=== PATIENT | female | born 1950 | race Caucasian/White ===

== ENCOUNTER 2019-08-01 21:14 | Inpatient (IN) | payer BC, MEDICARE ==
[2019-08-01 21:40] LABS: #Basophils 0.1 thou/uL (0.0-0.2); #Eosinphils 0.2 thou/uL (0.0-0.7); #Lymphocytes 2.6 thou/uL (1.20-3.40); #Monocytes 0.6 thou/uL (0.11-0.59); #Neutrophils 8.7 thou/uL (1.40-6.50); %Basophils 0.5 % (0.0-1.0); %Eosinophils 1.3 % (0.0-10.0); %Lymphocytes 21.5 % (21.0-51.0); %Monocytes 5.2 % (0.0-10.0); %Neutrophils 71.5 % (42.0-75.0); Hemoglobin 13.7 g/dL (12.0-16.0); Mean Corpuscular HGB CONC 33.7 g/dL (32.0-36.0); Mean Corpuscular Hemoglobin 31.4 pg (27.0-31.0); Mean Corpuscular Volume 93.2 fL (78.0-98.0); Mean Platelet Volume 7.1 fL (7.4-10.4); Platelet Count 296 thou/uL (130-400); RBC Distribution Width 12.3 % (11.5-14.5); Red Blood Cell (RBC) Count 4.36 mill/uL (4.20-5.40); White Blood Cell (WBC) Count 12.1 thou/uL (4.8-10.8)
--- NOTE | 2019-08-01 21:54 | RAD ---
Chest one view HISTORY: Dyspnea. FINDINGS: No comparison. Cardiac silhouette is magnified and enlarged. Pulmonary vasculature slightly engorged with mild patchy bibasilar infiltrates. Mediastinum is midline with aortic calcification. No lobar consolidation or evidence of pneumothorax. IMPRESSION: Mild bibasilar infiltrates favored to be related to borderline pulmonary edema. Cardiomegaly. Atherosclerosis.
[2019-08-01 22:09] LABS: ALT (SGPT) 30 U/L (8-55); AST (SGOT) 26 U/L (5-34); Albumin 4.3 g/dL (3.4-4.8); Alkaline Phosphatase 81 U/L (40-110); Anion Gap 14 mmol/L (10-20); BUN (Urea Nitrogen) 16 mg/dL (9.8-20.1); Bilirubin, Total 0.7 mg/dL (0.2-1.2); CK (CPK) 129 U/L (29-168); Calc. Creatinine Clearance 0 mL/min (70-130); Calcium 9.4 mg/dL (7.8-10.44); Carbon Dioxide 20 mmol/L (23-31); Chloride 110 mmol/L (98-107); Estimated GFR-MDRD 73; Globulin 2.2 g/dL (2.4-3.5); Glucose 147 mg/dL (80-115); Potassium 3.7 mmol/L (3.5-5.1); Protein, Total 6.5 g/dL (6.0-8.3); Sodium 140 mmol/L (136-145)
--- NOTE | 2019-08-01 23:54 | PDOC.FPRHP ---
- History of Present Illness Chief Complaint: back pain, a-fib by EMS History of Present Illness: Pt is 68-yo F w/ no PMHx but who rarely sees a physician. CC is back pain that started in the L lower back and shot up to her R upper back. [place] like a muscle spasm that was sharp in nature. Lasted for about 1.5 hours. Due to pain, called her neighbors who are EMS and they said she was in a-fib. Called ambulance. Received cardizem push and placed on drip. During this episode, she did not notice her heart racing. She has noticed heart racing in the past and checked her pulse ox and noticed HR fluctuated at times. Denies CP, SOB, increased WOB. placed ice on her back, which helped her back pain. Did not try meds for the pain. Has never been told she has a-fib. ED Course: EMS gave cardizem. EKG shows A-fib, now rate controlled. - Allergies/Adverse Reactions Allergies Allergy/AdvReac Type Severity Reaction Status Date / Time No Known Drug Allergies Allergy Verified 08/02/19 09:51 - History PMHx: none, but does not often see her PCP PSHx: cholecystectomy, tonsillectomy/adenoidectomy as a child FHx: - Mother: mitral stenosis, rheumatic heart disease - Brother: congenital heart disease, replaced aortic valve, had episodes of fainting prior to diagnosis Social: - Denies smoking, drinking, illicit drug use - . - Review of Systems General: denies: fever/chills, weight/appetite/sleep changes Eyes: denies: vision changes ENT: denies: nasal congestion, rhinorrhea Respiratory: denies: cough, shortness of breath Cardiovascular: reports: palpitation. denies: chest pain, edema, orthopnea Gastrointestinal: denies: nausea, vomiting, diarrhea, abdominal pain Genitourinary: denies: dysuria Skin: denies: rashes, jaundice Musculoskeletal: denies: pain, swelling Neurological: denies: syncope, seizure, weakness Psychological: denies: anxiety, depression - Vital signs BP: 125/87, Pulse: 110, Resp: 16, Pain: 0, O2 sat: 96 on (Room Air), Time: 2019 22:33. - Physical Exam Constitutional: NAD, awake, alert and oriented, well developed HEENT: normocephalic and atraumatic, PERRLA, EOMI, conjunctiva clear, no scleral icterus, grossly normal hearing, normal nasal mucosa, MMM Neck: supple, trachea midline, no thyromegaly Chest: no-tender to palpation Heart: normal S1/S2, no murmurs/rubs/gallops, pulses present -Heart: mild nonpitting edema, tachycardic rate, irregular rhythm Lungs: CTAB, no respiratory distress, no wheezing Abdomen: soft, non-tender, no masses/distention Musculoskeletal: normal structure, normal tone, ROM grossly normal Neurological: no focal deficit Skin: no rash/lesions, good turgor, no jaundice Heme/Lymphatic: no purpura, no LAD -Heme/Lymphatic: minimal petechia on shins b/l Psychiatric: normal mood and affect, good judgment and insight, intact recent and remote memory FMR H&P: Results - Labs Result Diagrams: 08/02/19 06:27 08/02/19 06:27 Lab results: WBC 12.1 thou/uL (4.8-10.8) H 08/01/19 21:36 Hgb 13.7 g/dL (12.0-16.0) 08/01/19 21:36 Hct 40.6 % (36.0-47.0) 08/01/19 21:36 MCV 93.2 fL (78.0-98.0) 08/01/19 21:36 Plt Count 296 thou/uL (130-400) 08/01/19 21:36 Neutrophils % 71.5 % (42.0-75.0) 08/01/19 21:36 Sodium 140 mmol/L (136-145) 08/01/19 21:36 Potassium 3.7 mmol/L (3.5-5.1) 08/01/19 21:36 Chloride 110 mmol/L (98-107) H 08/01/19 21:36 Carbon Dioxide 20 mmol/L (23-31) L 08/01/19 21:36 BUN 16 mg/dL (9.8-20.1) 08/01/19 21:36 Creatinine 0.78 mg/dL (0.6-1.1) 08/01/19 21:36 Glucose 147 mg/dL (80-115) H 08/01/19 21:36 Calcium 9.4 mg/dL (7.8-10.44) 08/01/19 21:36 Total Bilirubin 0.7 mg/dL (0.2-1.2) 08/01/19 21:36 AST 26 U/L (5-34) 08/01/19 21:36 ALT 30 U/L (8-55) 08/01/19 21:36 Alkaline Phosphatase 81 U/L (40-110) 08/01/19 21:36 Creatine Kinase 129 U/L (29-168) 08/01/19 21:36 Serum Total Protein 6.5 g/dL (6.0-8.3) 08/01/19 21:36 Albumin 4.3 g/dL (3.4-4.8) 08/01/19 21:36 - EKG Interpretation EKG: a-fib - Radiology Interpretation Chest x-ray Status: image reviewed by me, report reviewed by me (mild bibasilar infiltrates , cardiomegaly, atherosclerosis) FMR H&P: A/P - Problem List (1) Atrial fibrillation with RVR Current Visit: Yes Status: Acute Code(s): I48.91 - UNSPECIFIED ATRIAL FIBRILLATION (2) Back pain Current Visit: Yes Status: Acute Code(s): M54.9 - DORSALGIA, UNSPECIFIED - Plan 68 year old female admitted for: New onset A-fib w/ RVR - possible paroxysmal a-fib which has been going on for a while, but pt has not seen doctor nor been worked up for this - CXR w/ possible b/l pulmonary edema, cardiomegaly, atherosclerosis. Possible new onset CHF as well. Will wait on getting ECHO until a-fib is rate-controlled and until cardiology sees pt in AM. - Initial trop 0.023. - BNP 293. - Trend troponins - TSH, magnesium pending. - Consult cardiology in AM for new onset A-fib - Will anticoagulate w/ heparin drip - Diltiazem drip. Back pain - unclear etiology. May be acute muscle spasm. - will monitor and manage pain symptoms w/ Tylenol. Possible CHANA - follow up outpatient, states pt snores at night and has apneic spells. This may be contributing to her cardiomegaly if she is developing persistent pulmonary HTN. Code: full Fluids: none Diet: NPO, in case cardiology may wish to cardiovert tomorrow VTE PPx: see heparin drip above GI ppx: none Josie Abrams. PGY1 Disposition/LOS: admit to inpatient telemetry. LOS > 48 H FMR H&P: Upper Level - Plan Date/Time: 08/01/19 8183 PCP: Paulino HPI: This is a 68 yo F with no significant PMH being admitted for evaluation of new onset a fib w/ RVR. Patient states she was sitting at home when she developed a throbbing back pain between her shoulder blades. Denies CP, SOB, or radiation to her arm or neck. She denies sensation of palpitations. States she called her neighbors who are paramedics and they advised her to call 911 for evaluation. Upon arrival of paramedics she was found to be in A fib w/ RVR with rate in the 140s-150s. She was given diltiazem 15mg IV. In the ED her HR was initially in the 140s but then trended to around 110 without further treatment. Patient states that she uses her husbands pulse ox on herself and her pulse frequently is in the 120s or 130s. Patient denies recent illnesses. states that patient does snore excessively at night time. REVIEW OF SYSTEMS: Gen: no fever, chills, or sweats Neuro: denies headache Eyes: no visual changes ENT: no hearing changes, no sore throat, no congestion Resp: denies cough, SOB Card: denies murmurs, rubs, gallups GI: no N/V/D, no abdominal pain Heme: no easy bruising/bleeding, no blood thinners Skin: no rash, no erythema PHYSICAL EXAMINATION: General: NAD, alert and oriented x3 HEENT: PERRLA, EOMI, normal sclera, oropharynx without erythema or exudate Neck: Supple. Full ROM. Heart/Cardiovascular System: irregularly irregular rhythm, Cap refill < 3 seconds, no rub, no murmur Lungs/Respiratory System: CTA-B, no resp distress Abdomen/Gastro-Intestinal System: no abdominal tenderness, normal bowel sounds Extremities: Warm extremities. No cyanosis or edema Neuro: No gross deficits appreciated. CN 2-12 grossly intact Psychiatry: Awake, Alert and cooperative with exam Skin: No lesions, rashes, or ulcers Musculoskeletal: Full ROM A/P: # New onset A fib w/ RVR - Rate controlled after 15mg IV diltiazem, will start oral diltiazem - Monitor on tele, IV diltiazem if rate bumps up - Heparin drip, patient may qualify for cardioversion o CHADS-VASC- 1 - Consult Cardiology in AM - Trend troponin, check TSH, mag - Abnormal EKG: St depression V5-V6, Tinv V2-V6, on heparin, trend trops # Likely CHANA - outpt sleep study Fluids: TKO Code status: full PPx: heparin Dispo: >2 midnight Addendum - Attending - Attending Attestation Date/Time: 08/02/19 1147 I personally evaluated the patient and discussed the management with Dr. Abrams I agree with the History, Examination, Assessment and Plan documented above with any addition or exceptions noted below. 68 yo female admitted with Atrial fibrillation with RVR rate controlled with diltiazem.CHADS VASC 1 for female sex 1 for age equal 2 Questionable new onset A fib verse parosymal a fib. Patient endorses episodes of weakness and palpitations and pulse with elevated HR. Patient relates a "cardiac work" up in [facility] [place] approximately 4 years ago which was negative per patient. Meds none p[atient with sparse physician contact Lizbeth INGRAM social 2 children FMHX Father 60s Mother with Rheumatic heart disease had MVR Brother with Blane HD hx ablation in his 30s Habits nonsmoker non drinker ROS cataracts ,tinnitus, had negative colonoscopy at 60 yo otherwise negative ROS A atrial fib with RVR P echocardiogram for structural valvular disease evaluation evaluate for ASHD can hold off heparin drip pending Cardiology recommendation TFTs need to be checked if not done. Rate control with diltiazem for now.
[2019-08-02] MEDS ORDERED: Ondansetron PF 4 MG/2 ML Vial IVP PRN (00:19)
[2019-08-02] MEDS ORDERED: Acetaminophen 325 MG TAB PO PRN (00:19)
[2019-08-02] MEDS ORDERED: Ondansetron ODT 4 MG TAB PO PRN (00:19)
[2019-08-02] MEDS ORDERED: Heparin 25,000 units/D5W 500 ML IVPB SCH (00:30)
[2019-08-02] MEDS ORDERED: Heparin 10,000 UNITS/ 10 ML VIAL SLOW IVP SCH (00:30)
[2019-08-02 01:04] LABS: Hemoglobin 13.5 g/dL (12.0-16.0); Platelet Count 290 thou/uL (130-400)
[2019-08-02 01:29] LABS: Troponin I 0.037 ng/mL (< 0.028)
--- NOTE | 2019-08-02 02:48 | PDOC.BPN ---
- Brief Progress Note re-check on patient she had gotten up to go to restroom, after returning rate was in 130s at time of exam rate consistently in 120s patient denies chest pain but is having recurrence of back pain Will start diltiazem drip at 5mg/hr
[2019-08-02] MEDS: Diltiazem 125 MG in Sodium Chloride 0.9% 100 ML IVPB SCH (03:29)
[2019-08-02 06:39] LABS: #Basophils 0.1 thou/uL (0.0-0.2); #Eosinphils 0.2 thou/uL (0.0-0.7); #Lymphocytes 2.6 thou/uL (1.20-3.40); #Monocytes 0.6 thou/uL (0.11-0.59); #Neutrophils 7.3 thou/uL (1.40-6.50); %Basophils 0.6 % (0.0-1.0); %Eosinophils 1.8 % (0.0-10.0); %Lymphocytes 24.3 % (21.0-51.0); %Monocytes 5.7 % (0.0-10.0); %Neutrophils 67.5 % (42.0-75.0); Hemoglobin 13.7 g/dL (12.0-16.0); Mean Corpuscular HGB CONC 34.4 g/dL (32.0-36.0); Mean Corpuscular Hemoglobin 31.9 pg (27.0-31.0); Mean Corpuscular Volume 92.6 fL (78.0-98.0); Mean Platelet Volume 7.4 fL (7.4-10.4); Platelet Count 264 thou/uL (130-400); RBC Distribution Width 12.4 % (11.5-14.5); Red Blood Cell (RBC) Count 4.31 mill/uL (4.20-5.40); White Blood Cell (WBC) Count 10.7 thou/uL (4.8-10.8)
[2019-08-02 06:57] LABS: Anion Gap 12 mmol/L (10-20); BUN (Urea Nitrogen) 12 mg/dL (9.8-20.1); Calc. Creatinine Clearance 0 mL/min (70-130); Calcium 8.7 mg/dL (7.8-10.44); Carbon Dioxide 21 mmol/L (23-31); Chloride 110 mmol/L (98-107); Estimated GFR-MDRD 83; Glucose 98 mg/dL (80-115); Potassium 3.8 mmol/L (3.5-5.1); Sodium 139 mmol/L (136-145)
[2019-08-02 07:03] LABS: Troponin I 0.014 ng/mL (< 0.028)
[2019-08-02 09:47] VITALS: BMI 29.6
[2019-08-02] MEDS ORDERED: hydrALAZINE 20 MG/ML VIAL SLOW IVP PRN (14:53)
--- NOTE | 2019-08-02 18:01 | CON ---
DATE OF CONSULTATION: 08/02/2019 REASON FOR CONSULTATION: New onset atrial fibrillation. HISTORY OF PRESENT ILLNESS: Ms. Leal is a very pleasant 68-year-old woman, who has not been seen or evaluated in the past. She has no significant past medical history. She recently presented with back spasm. She was found to be in atrial fibrillation with RVR. She was asymptomatic. No palpitations, heart fluttering. She does have likely history of obstructive sleep apnea. Her states she snores and stops breathing. No previous history of hypertension or other associated symptoms. PAST MEDICAL HISTORY: As above. SURGICAL HISTORY: Cholecystectomy, tonsillectomy. FAMILY HISTORY: Negative for CAD. SOCIAL HISTORY: No current tobacco or alcohol use. REVIEW OF SYSTEMS: A 10-point review of systems is reviewed as above, otherwise negative. PHYSICAL EXAMINATION: GENERAL: Patient is a pleasant woman who is in no acute distress. The patient appears their stated age. VITAL SIGNS: Blood pressure 146/88, pulse 93, temperature 98.1. NEUROLOGIC: The patient is alert and oriented x3 with no focal neurologic deficits. HEENT: Sclerae without icterus. Mouth has moist mucous membranes with normal pallor. NECK: No JVD. Carotid upstroke brisk. No bruits bilaterally. LUNGS: Clear to auscultation with unlabored respirations. BACK: No scoliosis or kyphosis. CARDIAC: Irregularly irregular rate and rhythm with normal S1 and S2. No S3 or S4 noted. No significant rubs, murmurs, thrills, or gallops noted throughout the precordium. PMI is not displaced. There is no parasternal heave. ABDOMEN: Soft, nontender, nondistended. No peritoneal signs present. No hepatosplenomegaly. No abnormal striae. EXTREMITIES: 2+ femoral and 2+ dorsalis pedis pulses. No cyanosis, clubbing, or edema. SKIN: No gross abnormalities. PERTINENT LABORATORY DATA: Hemoglobin 13.7, creatinine 0.7, peak troponin 0.037. BNP of 293. IMPRESSION: New onset atrial fibrillation. RECOMMENDATIONS: Etiology to underlying atrial fibrillation is likely related to obstructive sleep apnea. She has no previous history of hypertension or has never been diagnosed with hypertension. We will continue to monitor blood pressure closely and make adjustments if needed. She is currently on IV Cardizem at 5 mg/hour. She will likely benefit from anticoagulation therapy. I have discussed risks and benefits of anticoagulation treatment. She is amenable. Once she is rate control, it will be okay from my standpoint to discharge home with close outpatient followup. Job ID: [id number]
[2019-08-02] MEDS ORDERED: Heparin 5,000 UNITS/ML VIAL SC SCH (21:00)
[2019-08-03] MEDS: Diltiazem 125 MG in Sodium Chloride 0.9% 100 ML IVPB SCH (01:16)
[2019-08-03 05:18] LABS: Anion Gap 14 mmol/L (10-20); BUN (Urea Nitrogen) 12 mg/dL (9.8-20.1); Calc. Creatinine Clearance 100 mL/min (70-130); Calcium 9.3 mg/dL (7.8-10.44); Carbon Dioxide 22 mmol/L (23-31); Cardiac Risk 2.6 (Less than 4.5); Chloride 108 mmol/L (98-107); Cholesterol 177 mg/dl (< 200 Desired); Estimated GFR-MDRD 82; Glucose 111 mg/dL (80-115); HDL Cholesterol 67 mg/dL (>60 Neg Risk); LDL Cholesterol, Calculated 90 mg/dL; Potassium 3.8 mmol/L (3.5-5.1); Sodium 140 mmol/L (136-145); Triglycerides 101 mg/dL (Less than 150)
--- NOTE | 2019-08-03 05:59 | PDOC.FM ---
- Subjective Subjective: Pt states she is feeling well this morning. Denies any palpitations, lightheadedness or dizziness. No CP or SOB. Pt was seen by cardiology yesterday and has agreed to start anticoagulation therapy. Discussed her transition to PO rate control meds. Agrees with current plan of care. - Objective Vital Signs & Weight: Vital Signs (12 hours) Temp Pulse Resp BP Pulse Ox 08/03/19 03:21 98.1 F 89 20 114/80 95 08/02/19 23:00 76 116/62 08/02/19 19:05 97.6 F 64 16 145/87 H 97 Weight Weight 83.206 kg Result Diagrams: 08/02/19 06:27 08/03/19 04:12 Phys Exam - Physical Examination Constitutional: NAD HEENT: moist MMs, sclera anicteric Neck: supple, full ROM Respiratory: no wheezing, no rales, no rhonchi, clear to auscultation bilateral Irregularly irregular rhythm, normal rate, no murmur Gastrointestinal: soft, no distention Musculoskeletal: no edema, pulses present Neurological: moves all 4 limbs Psychiatric: normal affect, A&O x 3 Skin: no rash, cap refill <2 seconds Dx/Plan (1) Obstructive sleep apnea Code(s): G47.33 - OBSTRUCTIVE SLEEP APNEA (ADULT) (PEDIATRIC) Status: Resolved (2) Atrial fibrillation with RVR Code(s): I48.91 - UNSPECIFIED ATRIAL FIBRILLATION Status: Resolved (3) Atrial fibrillation Code(s): I48.91 - UNSPECIFIED ATRIAL FIBRILLATION Status: Acute - Plan Plan: 68 year old female admitted for: New onset A-fib w/ RVR - Currently rate controlled on diltiazem PO TID per Dr. Mai, will likely DC diltiazem ER - Transitioned from heparin to Eliquis for anticoagulation today - Dr. Mai consulted and believes etiology is 2/2 CHANA. Recommends rate control and anticoagulation prior to discharge - Echo has been taken, pending formal read Possible CHANA - follow up outpatient Code: full Diet: HH VTE PPx: Eliquis Disposition/LOS: admit to inpatient telemetry. LOS > 48 H PCP: Dr. Bob Addendum - Attending - Attending Attestation Date/Time: 08/03/19 3041 I personally evaluated the patient and discussed the management with Dr. Rios I agree with the History, Examination, Assessment and Plan documented above with any addition or exceptions noted below. Rate controlled will transition long acting non-dihydropyridine diltiazem ER, DAOC started. Will proceed with outpatient sleep study.
[2019-08-03] MEDS ORDERED: Apixaban 5 MG TAB PO SCH (09:00)
[2019-08-03] MEDS ORDERED: FLU VACC TS2019-20(65YR UP)/PF 180 MCG/0.5 ML SYRINGE IM ONE (10:15)
[2019-08-03] MEDS ORDERED: Communication Order-Pharmacy FS SCH (16:30)
--- NOTE | 2019-08-03 18:11 | PRG ---
DATE OF SERVICE: 08/03/2019 SUBJECTIVE: Ms. Leal is doing well. No current complaints. She feels much better. She is rate controlled on p.o. diltiazem. OBJECTIVE: VITAL SIGNS: Blood pressure 166/91, pulse 91, temperature 97.6. LUNGS: Clear to auscultation. HEART: Irregularly irregular. ABDOMEN: Soft, nontender, nondistended. EXTREMITIES: No edema. PERTINENT LABORATORY DATA: Hemoglobin 13.7, hematocrit 39.9. Echo with Doppler shows LVEF 25% to 30%. LV appears dilated. IMPRESSION: 1. New onset cardiomyopathy. 2. Atrial fibrillation. RECOMMENDATIONS: I discussed new findings with Ms. Leal in full detail. I discussed cardiomyopathy. I discussed in full detail proceeding with coronary angiography versus medical therapy versus a noninvasive stress study. After discussing the above, it was decided to proceed with coronary angiography. I discussed the procedure in full detail with Ms. Leal. Risks include not limited to the following: , stroke, SC, need for emergency surgery, loss of limb, bleeding, and infection, as well as a reaction to the dye causing kidney failure and needing long-term dialysis. I also discussed the risks of PCI to include all of the above including coronary dissection and perforation in addition to acute stent thrombosis and restenosis. All questions were answered. Given the above, the patient agreed to proceed with the above procedure. We will also recommend LifeMarium. Job ID: [id number]
[2019-08-04] MEDS ORDERED: Sodium Chloride 0.9% 1,000 ML IV SCH ×2 (06:00→09:15)
--- NOTE | 2019-08-04 06:15 | PDOC.FM ---
- Subjective Subjective: Pt remains asymptomatic this morning, no events overnight. Was seen by Dr. Mai yesterday following echo and informed of CHF dx. Agreed to undergo cath procedure today to assess for ischemic heart disease. - Objective Vital Signs & Weight: Vital Signs (12 hours) Temp Pulse Resp BP Pulse Ox 08/04/19 04:00 98.2 F 84 20 124/67 95 08/03/19 19:30 98.0 F 90 16 159/77 H 96 Weight Weight 83.206 kg Result Diagrams: 08/02/19 06:27 08/03/19 04:12 Phys Exam - Physical Examination Constitutional: NAD HEENT: moist MMs, sclera anicteric Neck: no JVD, full ROM Respiratory: no wheezing, no rales, no rhonchi, clear to auscultation bilateral Irregularly Irregular, normal rate, no extra heart sounds Gastrointestinal: soft, non-tender Musculoskeletal: no edema, pulses present Neurological: non-focal, moves all 4 limbs Psychiatric: normal affect, A&O x 3 Skin: no rash, cap refill <2 seconds Dx/Plan (1) Atrial fibrillation with RVR Code(s): I48.91 - UNSPECIFIED ATRIAL FIBRILLATION Status: Resolved (2) Atrial fibrillation Code(s): I48.91 - UNSPECIFIED ATRIAL FIBRILLATION Status: Acute (3) Congestive heart failure Code(s): I50.9 - HEART FAILURE, UNSPECIFIED Status: Acute (4) Obstructive sleep apnea Code(s): G47.33 - OBSTRUCTIVE SLEEP APNEA (ADULT) (PEDIATRIC) Status: Resolved - Plan Plan: 68 year old female admitted for: New onset A-fib - Currently rate controlled on TID diltiazem, will transition to ER prior to DC - Echo yesterday showed new onset CHF - Eliquis held for cath today New onset CHF - Echo: EF 25-30% - Dr. Mai spoke w/ pt and will perform cardiac cath today - Lifevest prior to discharge - HF clinic consulted - ACEi and BB initiation prior to DC Possible CHANA - follow up outpatient for referral Code: full Diet: HH VTE PPx: Holding Disposition/LOS: Inpt tele. Cath procedure today. PCP: Dr. Bob Addendum - Attending - Attending Attestation Date/Time: 08/04/19 5882 I personally evaluated the patient and discussed the management with Dr. Rios I agree with the History, Examination, Assessment and Plan documented above with any addition or exceptions noted below. Heart Cath with mild CAD per patient report. Patient for life vest and amiodarone, eliquis and possible DC cardioversion in the future.
[2019-08-04] MEDS ORDERED: Heparin (Artline) 1,000 ML ONE (06:37)
[2019-08-04] MEDS ORDERED: Nitroglycerin 100MG/250ML BOT 250 ML ONE (06:38)
[2019-08-04] MEDS ORDERED: Verapamil 5 MG/2 ML VIAL ONE (06:38)
[2019-08-04] MEDS ORDERED: Heparin 10,000 UNITS/1 ML VIAL ONE (06:38)
[2019-08-04] MEDS ORDERED: Lidocaine 1% (PF) 30 ML VIAL ONE (06:45)
[2019-08-04] MEDS ORDERED: Midazolam HCl 2 mg/2 ml Vial ONE (07:25)
[2019-08-04] MEDS ORDERED: Fentanyl 100 MCG/2 ML VIAL ONE (07:25)
[2019-08-04] MEDS ORDERED: Nitroglycerin 0.4 MG TAB (25 Tab Bottle) SL PRN (09:07)
[2019-08-04] MEDS ORDERED: Acetaminophen/Codeine 30-300mg Tablet PO PRN ×2 (09:07)
[2019-08-04] MEDS ORDERED: Sodium Chloride 0.9% 200 ML IV PRN (09:07)
[2019-08-04] MEDS ORDERED: Carvedilol 6.25 MG TAB PO SCH ×2 (09:30→21:00)
[2019-08-04] MEDS ORDERED: Apixaban 5 MG TAB PO SCH ×2 (09:30→21:00)
[2019-08-04] MEDS ORDERED: Losartan 25 MG TAB PO SCH (09:30)
[2019-08-04] MEDS ORDERED: Amiodarone 200 MG TAB PO SCH ×2 (09:30→21:00)
[2019-08-04] MEDS ORDERED: Iopamidol 370 76% 100 ML VIAL ONE (09:45)
[2019-08-04 11:47] VITALS: TEMP 97
[2019-08-04 12:52] VITALS: BP 117/60
--- NOTE | 2019-08-05 02:02 | DIS ---
DATE OF ADMISSION: 08/02/2019 DATE OF DISCHARGE: 08/04/2019 ADMITTING ATTENDING: Diego Foster MD DISCHARGE ATTENDING: Jarocho Riggs MD RESIDENT: Jv Rios DO CONSULTS: Cardiology, Rene Mai MD; Heart Failure Clinic; Cardiac rehab. PROCEDURES PERFORMED: 1. Cardiac catheterization, 08/04/2019. Findings: Mild coronary artery disease, report pending. 2. Imaging: Chest x-ray, mild basilar infiltrates favored to be related to borderline pulmonary edema. PRIMARY DIAGNOSES: Heart failure, reduced ejection fraction, atrial fibrillation with rapid ventricular response, mild coronary artery disease. SECONDARY DIAGNOSES: Likely obstructive sleep apnea, hypertension. DISCHARGE MEDICATIONS: 1. Eliquis 5 mg p.o. b.i.d. 2. Amiodarone 400 mg p.o. b.i.d. for one week, then once daily. 3. Coreg 6.25 mg p.o. b.i.d. 4. Losartan 25 mg daily. HISTORY OF PRESENT ILLNESS AND HOSPITAL COURSE: A 68-year-old female with no past medical history, presented to the emergency department complaining of left lower back pain radiating to her right upper back. En route via EMS, the patient was noted to be in atrial fibrillation with rapid ventricular response and received Cardizem bolus. At the time of arrival to the emergency department, the patient was still in RVR and started on a diltiazem drip at 5 mL an hour. The patient states that she was never told before that she had atrial fibrillation, but did note that in the past, she has noted her heart rate fluctuating when she has checked her pulse. The patient was subsequently admitted to inpatient telemetry for continued cardiac monitoring and titration of her rate control medications. The patient was then evaluated by Cardiology, Dr. Mai, who transitioned the patient to oral diltiazem and initiated oral anticoagulation therapy. The patient had an echocardiogram performed that showed an EF of 25% to 30%. With this finding, the patient agreed to undergo cardiac catheterization, which subsequently showed mild coronary artery disease, not requiring any stents. The patient was started on an ABIGAIL inhibitor, beta-delta, as well as amiodarone for rhythm control prior to discharge. The patient was also fitted for a LifeVest and seen by the Heart failure Clinic in cardiac rehabilitation. The patient was instructed on the need for close followup with both her PCP and Cardiology in the near future. She expressed understanding of this and was stable at the time of discharge. DISCHARGE INSTRUCTIONS: 1. Location: Home. 2. Diet: Heart healthy. 3. Activity: As tolerated by cardiopulmonary limits. 4. Followup: PCP; [facility] within 7 days; Dr. Mai, Cardiology, within 2 to 4 weeks. Job ID: [id number]
[2019-08-05] MEDS ORDERED: Losartan 25 MG TAB PO SCH (09:00)
--- NOTE | 2019-08-05 15:45 | EKG ---
Test Reason : A FIB Blood Pressure : / mmHG Vent. Rate : 093 BPM Atrial Rate : 072 BPM P-R Int : 000 ms QRS Dur : 108 ms QT Int : 364 ms P-R-T Axes : 000 -08 146 degrees QTc Int : 452 ms Atrial fibrillation Incomplete right bundle branch block Abnormal ECG Confirmed by CHANG SILVEIRA ([id number]), newspaper photo editor ALEISHA PHILLIP ([id number]) on 08/05/2019 3:44:47 PM Referred By: Confirmed By:CHANG Wang
--- NOTE | 2019-08-07 01:58 | PQF ---
RYAN BROCK GRADY [id number] [facility]-297 [id number] CLINICAL DOCUMENTATION CLARIFICATION FORM: POST DISCHARGE Addendum to original discharge summary date: ____ Late entry note date: __ DATE: 08/07/19 ATTN: Jarocho Beaver Please exercise your independent, professional judgment in responding to the clarification form. Clinical indicators are provided on the bottom of this form for your review Please check appropriate box(s): HEART FAILURE: Heart Failure, reduced ejection ACUITY [ ] Acute [ ] Acute on Chronic [ x ] Chronic [ ] Other diagnosis [ ] Unable to determine In addition, please specify: Present on Admission (POA): [ x ] Yes [ ] No [ ] Unable to determine For continuity of documentation, please document condition throughout progress notes and discharge summary. Thank You. CLINICAL INDICATORS - SIGNS / SYMPTOMS / LABS Family Medicine H&P p1 08/02 Dr Abrams CC is back pain that started in the l lower back and shot up to her R upper back Family Medicine H&P p1 08/02 Dr Abrams called her neighbors who are EMS and they said she was in afib Family Medicine H&P p2 08/02 Dr Abrams Mild nonpitting edema, tachycardic rate , irregular rhythm Family Medicine H&P p4 08/02 Dr Abrams BNP 293, troponin trends TTE 08/02 Impression: Ejection fraction is visually estimated at 25-30% RISKS: Discharge summary p1 08/04 Heart Failure, reduced ejection fraction Discharge summary 08/04 Atrial fibrillation with rapid ventricular response Discharge summary p1 08/04 Mild coronary artery disease Discharge summary 08/04 Hypertension TREATMENTS: SEP 16 IV Diltiazem drip SEP 16 CarvedilolTTE 08/[address] Ashley Mai Cardiac Catherization 08/04 Dr Ashley Mai (This form is maintained as a part of the permanent medical record) 2014 [employer]. All Rights Reserved [email or web address] [not provided] MTDD
== END 2019-08-04 15:35 | disposition home or self-care (01) | DRG 287 ==
LOC: ERS 21:14 → ERHOLD 08-02 00:09 → 2NO 08-02 09:28
PROVIDERS: ADMIT Family Medicine; ATTEND Family Medicine
PROC: 3E0234Z Introduction of Serum, Toxoid and Vaccine into Muscle, Percutaneous Approach (ICD-10-PCS; principal; 2019-08-03)
PROC: 4A023N7 Measurement of Cardiac Sampling and Pressure, Left Heart, Percutaneous Approach (ICD-10-PCS; 2019-08-04)
PROC: B2151ZZ Fluoroscopy of Left Heart using Low Osmolar Contrast (ICD-10-PCS; 2019-08-04)
PROC: B2111ZZ Fluoroscopy of Multiple Coronary Arteries using Low Osmolar Contrast (ICD-10-PCS; 2019-08-04)
PROC: B3101ZZ Fluoroscopy of Thoracic Aorta using Low Osmolar Contrast (ICD-10-PCS; 2019-08-04)
DX: I48.0 Paroxysmal atrial fibrillation (principal); I50.22 Chronic systolic (congestive) heart failure; I42.9 Cardiomyopathy, unspecified; I25.10 Atherosclerotic heart disease of native coronary artery without angina pectoris; G47.33 Obstructive sleep apnea (adult) (pediatric); I11.0 Hypertensive heart disease with heart failure; Z23 Encounter for immunization; Z90.49 Acquired absence of other specified parts of digestive tract
CPT/HCPCS: 36415; 71045; 80048; 80053; 80061; 82550; 83735; 83880; 84443; 84484; 85014; 85018; 85025; 85049; 85730; 90471; 90662; 93005; 93306; 93458; 93798; 94760; 99152; 99153; C1769; G0008; J1644; J2001; J2250; J3010; J3490; Q9967

== ENCOUNTER 2019-09-07 11:13 | Day surgery (SDC) | payer BC ==
[2019-09-06 08:40] VITALS: BMI 29.9
[2019-09-07 12:09] LABS: #Basophils 0.1 thou/uL (0.0-0.2); #Eosinphils 0.1 thou/uL (0.0-0.7); #Lymphocytes 2.4 thou/uL (1.20-3.40); #Monocytes 0.5 thou/uL (0.11-0.59); #Neutrophils 5.7 thou/uL (1.40-6.50); %Basophils 1.1 % (0.0-1.0); %Eosinophils 1.7 % (0.0-10.0); %Lymphocytes 27.1 % (21.0-51.0); %Monocytes 5.8 % (0.0-10.0); %Neutrophils 64.2 % (42.0-75.0); Hemoglobin 14.7 g/dL (12.0-16.0); Mean Corpuscular HGB CONC 34.3 g/dL (32.0-36.0); Mean Corpuscular Hemoglobin 31.7 pg (27.0-31.0); Mean Corpuscular Volume 92.4 fL (78.0-98.0); Mean Platelet Volume 7.4 fL (7.4-10.4); Platelet Count 271 thou/uL (130-400); RBC Distribution Width 12.3 % (11.5-14.5); Red Blood Cell (RBC) Count 4.64 mill/uL (4.20-5.40); White Blood Cell (WBC) Count 8.9 thou/uL (4.8-10.8)
[2019-09-07 12:31] LABS: Anion Gap 13 mmol/L (10-20); BUN (Urea Nitrogen) 13 mg/dL (9.8-20.1); Calc. Creatinine Clearance 79 mL/min (70-130); Calcium 9.6 mg/dL (7.8-10.44); Carbon Dioxide 26 mmol/L (23-31); Chloride 103 mmol/L (98-107); Estimated GFR-MDRD 61; Glucose 89 mg/dL (80-115); Potassium 4.1 mmol/L (3.5-5.1); Sodium 138 mmol/L (136-145)
[2019-09-07] MEDS ORDERED: PROPOFOL 20 ML ONE (12:41)
== END 2019-09-07 14:15 | disposition home or self-care (01) ==
LOC: CCL 11:13
PROVIDERS: ATTEND Internal Medicine Cardiovascular Disease
DX: I48.19 Other persistent atrial fibrillation (principal); I42.8 Other cardiomyopathies; I11.0 Hypertensive heart disease with heart failure; I50.21 Acute systolic (congestive) heart failure; G47.33 Obstructive sleep apnea (adult) (pediatric); Z79.01 Long term (current) use of anticoagulants; Z79.899 Other long term (current) drug therapy
CPT/HCPCS: 36415; 80048; 85025; 92960; J2704

== ENCOUNTER 2019-09-14 19:30 | Outpatient (CLI) | payer MEDICARE, BC | END 2019-09-14 19:31 | disposition home or self-care (01) | LOC: SLEEPLAB 19:30 | PROVIDERS: ATTEND Physician Assistant | DX: G47.33 Obstructive sleep apnea (adult) (pediatric) (principal); I11.0 Hypertensive heart disease with heart failure; I50.9 Heart failure, unspecified; I48.91 Unspecified atrial fibrillation; G47.00 Insomnia, unspecified; G47.52 REM sleep behavior disorder | CPT/HCPCS: 95810 ==

== ENCOUNTER 2019-11-18 19:30 | Outpatient (CLI) | payer BC | END 2019-11-18 19:31 | disposition home or self-care (01) | LOC: SLEEPLAB 19:30 | PROVIDERS: ATTEND Physician Assistant | DX: G47.33 Obstructive sleep apnea (adult) (pediatric) (principal); G47.10 Hypersomnia, unspecified; E66.9 Obesity, unspecified; I48.91 Unspecified atrial fibrillation; Z68.30 Body mass index [BMI] 30.0-30.9, adult | CPT/HCPCS: 95811 ==

== ENCOUNTER 2019-12-28 06:44 | Outpatient (CLI) | payer BC, OTHER ==
[2019-12-28 12:05] LABS: #Basophils 0.1 thou/uL (0.0-0.2); #Eosinphils 0.2 thou/uL (0.0-0.7); #Lymphocytes 2.1 thou/uL (1.20-3.40); #Monocytes 0.5 thou/uL (0.11-0.59); #Neutrophils 4.7 thou/uL (1.40-6.50); %Basophils 1.2 % (0.0-1.0); %Eosinophils 3.2 % (0.0-10.0); %Lymphocytes 27.8 % (21.0-51.0); %Monocytes 6.1 % (0.0-10.0); %Neutrophils 61.7 % (42.0-75.0); Hemoglobin 14.1 g/dL (12.0-16.0); Mean Corpuscular HGB CONC 34.2 g/dL (32.0-36.0); Mean Corpuscular Hemoglobin 32.6 pg (27.0-31.0); Mean Corpuscular Volume 95.4 fL (78.0-98.0); Mean Platelet Volume 7.5 fL (7.4-10.4); Platelet Count 284 thou/uL (130-400); RBC Distribution Width 11.9 % (11.5-14.5); Red Blood Cell (RBC) Count 4.33 mill/uL (4.20-5.40); White Blood Cell (WBC) Count 7.7 thou/uL (4.8-10.8)
[2019-12-28 13:12] LABS: ALT (SGPT) 18 U/L (8-55); AST (SGOT) 17 U/L (5-34); Albumin 4.6 g/dL (3.4-4.8); Alkaline Phosphatase 101 U/L (40-110); Anion Gap 13 mmol/L (10-20); BUN (Urea Nitrogen) 19 mg/dL (9.8-20.1); Bilirubin, Total 0.5 mg/dL (0.2-1.2); Calc. Creatinine Clearance 0 mL/min (70-130); Calcium 9.6 mg/dL (7.8-10.44); Carbon Dioxide 25 mmol/L (23-31); Chloride 107 mmol/L (98-107); Estimated GFR-MDRD 54; Globulin 2.7 g/dL (2.4-3.5); Glucose 95 mg/dL (80-115); Potassium 4.3 mmol/L (3.5-5.1); Protein, Total 7.3 g/dL (6.0-8.3); Sodium 141 mmol/L (136-145)
[2019-12-29 12:51] LABS: SARS-CoV-2 MS2 Positive; SARS-CoV-2 N Gene Negative; SARS-CoV-2 S Gene Negative; SARS-CoV-2 orf1ab Negative
== END 2019-12-28 06:45 | disposition home or self-care (01) ==
LOC: LABBT 06:44
PROVIDERS: ATTEND Internal Medicine Cardiovascular Disease
DX: Z01.812 Encounter for preprocedural laboratory examination (principal); Z11.59 Encounter for screening for other viral diseases
CPT/HCPCS: 80053; 85025; 87635; U0003

== ENCOUNTER → 2020-01-01 | Day surgery (SDC) | payer BC ==
[2019-12-27 17:01] VITALS: BMI 32.8
--- NOTE | 2020-01-01 14:19 | EKG ---
Test Reason : COMFIRNATION Blood Pressure : / mmHG Vent. Rate : 046 BPM Atrial Rate : 046 BPM P-R Int : 176 ms QRS Dur : 112 ms QT Int : 512 ms P-R-T Axes : 057 -01 105 degrees QTc Int : 448 ms Marked sinus bradycardia Abnormal ECG When compared with ECG of 02-AUG-2019 02:36, (Unconfirmed) Sinus rhythm has replaced Atrial fibrillation Vent. rate has decreased BY 64 BPM Incomplete right bundle branch block is no longer Present Confirmed by DR. Patrica CHEEK ([id number]) on 01/01/2020 2:19:18 PM Referred By: DRAKE Confirmed By:DR. Patrica CHEEK
== END ==
LOC: CCL 06:58
PROVIDERS: ATTEND Internal Medicine Cardiovascular Disease
DX: I48.19 Other persistent atrial fibrillation (principal); I48.92 Unspecified atrial flutter; I42.8 Other cardiomyopathies; I11.0 Hypertensive heart disease with heart failure; I50.22 Chronic systolic (congestive) heart failure; G47.33 Obstructive sleep apnea (adult) (pediatric); Z53.8 Procedure and treatment not carried out for other reasons; Z79.01 Long term (current) use of anticoagulants; Z79.899 Other long term (current) drug therapy; Z91.040 Latex allergy status
CPT/HCPCS: 93005; 93010

== ENCOUNTER 2020-01-07 13:52 | Inpatient (IN) | payer MEDICARE, BC ==
[2020-01-07 14:23] LABS: #Basophils 0.1 thou/uL (0.0-0.2); #Eosinphils 0.2 thou/uL (0.0-0.7); #Monocytes 0.6 thou/uL (0.11-0.59); #Neutrophils 6.1 thou/uL (1.40-6.50); %Basophils 0.7 % (0.0-1.0); %Lymphocytes 22.3 % (21.0-51.0); %Monocytes 7.2 % (0.0-10.0); %Neutrophils 67.8 % (42.0-75.0); Hemoglobin 13.2 g/dL (12.0-16.0); Mean Corpuscular Volume 94.5 fL (78.0-98.0); Mean Platelet Volume 7.6 fL (7.4-10.4); Platelet Count 309 thou/uL (130-400); RBC Distribution Width 11.8 % (11.5-14.5)
[2020-01-07 14:46] LABS: ALT (SGPT) 24 U/L (8-55); AST (SGOT) 35 U/L (5-34); Albumin 4.4 g/dL (3.4-4.8); Alkaline Phosphatase 101 U/L (40-110); Anion Gap 16 mmol/L (10-20); BUN (Urea Nitrogen) 18 mg/dL (9.8-20.1); Bilirubin, Total 0.7 mg/dL (0.2-1.2); CK (CPK) 70 U/L (29-168); Calc. Creatinine Clearance 0 mL/min (70-130); Calcium 9.4 mg/dL (7.8-10.44); Carbon Dioxide 20 mmol/L (23-31); Chloride 108 mmol/L (98-107); Estimated GFR-MDRD 51; Globulin 3.1 g/dL (2.4-3.5); Glucose 97 mg/dL (80-115); Lipase 27 U/L (8-78); Potassium 4.9 mmol/L (3.5-5.1); Protein, Total 7.5 g/dL (6.0-8.3); Sodium 139 mmol/L (136-145)
--- NOTE | 2020-01-07 14:46 | RAD ---
EXAM: Single view of the chest HISTORY: Dizziness and decreased heart rate COMPARISON: 08/01/2019 FINDINGS: Single view of the chest shows a normal sized cardiomediastinal silhouette. Atheroscleroti c calcifications are seen in the aorta. There is no evidence of consolidation, mass, or pleural effusion. The bones are unremarkable. IMPRESSION: No evidence of acute cardiopulmonary disease
--- NOTE | 2020-01-07 16:27 | PDOC.FPRHP ---
- History of Present Illness Chief Complaint: Dizziness, Weakness History of Present Illness: 69 year old female with PMH CHF, Hx of afib s/p cardioversion presents with several day history of worsening dizziness and weakness. Patient states that today, the weakness and general fatigue was so bad that she called her son who is an EMT to come assess her. He noted a HR down into the 20's. They called the on-call Wafer Fabricator, Dr. Dietrich, who recommended patient come in for evaluation. Of note, patient was diagnosed with HF and afib in July. She was started on medications at that time and had a cardioversion done. She was scheduled to have a cardioversion done with Dr. Jasmine on Wednesday, but she was in sinus rhythm, so they opted not to do it. Patient states that since July she feels she is overall declining. Her health up to that point had been really good. She had only been to the doctor 3-4 times in her life. She has not followed with her PCP in several years. Patient denies chest pain, shortness of breath, N/V/D, cough, congestion, fever, chills. - Allergies/Adverse Reactions Allergies Allergy/AdvReac Type Severity Reaction Status Date / Time latex Allergy Verified 12/27/19 17:00 - Home Medications Medication Instructions Recorded Confirmed Type Apixaban [Eliquis] 5 mg PO BID #60 tab 08/03/19 01/07/20 Rx Amiodarone [Cordarone] 200 mg PO BID 09/06/19 01/07/20 History Furosemide 1 tab PO DAILY 09/06/19 01/07/20 History Famotidine [Pepcid AC] 20 mg PO DAILY PRN 12/27/19 01/07/20 History Fluticasone Propionate [Flonase 2 spray EA NARE DAILY PRN 12/27/19 01/07/20 History Allergy Relief] Sacubitril/Valsartan [Entresto 24 1 tab PO BID 12/27/19 01/07/20 History mg-26 mg Tablet] Carvedilol [Coreg] 3.125 mg PO BID 01/07/20 01/07/20 History - History PMHx: HFrEF (25-30%), Hx afib PSHx: Cholecystectomy, Tonsillectomy FHx: Mother with MS and valve replacement, Brother with and valve replacement Social: Denies tobacco, alcohol, or drug use - Review of Systems General: reports: fatigue. denies: fever/chills, night sweats Eyes: denies: vision changes ENT: denies: nasal congestion, rhinorrhea Respiratory: denies: cough, congestion, shortness of breath Cardiovascular: reports: edema (intermittent LE). denies: chest pain, palpitation Gastrointestinal: denies: nausea, vomiting, diarrhea, constipation, abdominal pain Genitourinary: denies: incontinence, dysuria Skin: denies: rashes, lesions, jaundice Musculoskeletal: denies: pain, tenderness Neurological: reports: weakness. denies: numbness, syncope, seizure Psychological: denies: anxiety, depression - Vital signs BP: 151/60 HR: 36 RR: 16 Tmax: 98.1F Pox: 100% on RA Wt: 90.72 kg - Physical Exam Constitutional: NAD, awake, alert and oriented, well developed HEENT: EOMI, grossly normal vision, grossly normal hearing, normal nasal mucosa , MMM Heart: RRR, no murmurs/rubs/gallops Lungs: CTAB, no respiratory distress, no wheezing Abdomen: soft, non-tender, bowel sounds present Musculoskeletal: normal tone, ROM grossly normal Neurological: no focal deficit Skin: no rash/lesions, good turgor, capillary refill <2 seconds Heme/Lymphatic: no unusual bruising or bleeding, no purpura Psychiatric: normal mood and affect, good judgment and insight, intact recent and remote memory FMR H&P: Results - Labs Result Diagrams: 01/07/20 14:11 01/08/20 03:38 Lab results: WBC 9.0 thou/uL (4.8-10.8) 01/07/20 14:11 Hgb 13.2 g/dL (12.0-16.0) 01/07/20 14:11 Hct 36.8 % (36.0-47.0) 01/07/20 14:11 MCV 94.5 fL (78.0-98.0) 01/07/20 14:11 Plt Count 309 thou/uL (130-400) 01/07/20 14:11 Neutrophils % 67.8 % (42.0-75.0) 01/07/20 14:11 Sodium 139 mmol/L (136-145) 01/07/20 14:11 Potassium 4.9 mmol/L (3.5-5.1) 01/07/20 14:11 Chloride 108 mmol/L (98-107) H 01/07/20 14:11 Carbon Dioxide 20 mmol/L (23-31) L 01/07/20 14:11 BUN 18 mg/dL (9.8-20.1) 01/07/20 14:11 Creatinine 1.06 mg/dL (0.6-1.1) 01/07/20 14:11 Glucose 97 mg/dL (80-115) 01/07/20 14:11 Calcium 9.4 mg/dL (7.8-10.44) 01/07/20 14:11 Total Bilirubin 0.7 mg/dL (0.2-1.2) 01/07/20 14:11 AST 35 U/L (5-34) H 01/07/20 14:11 ALT 24 U/L (8-55) 01/07/20 14:11 Alkaline Phosphatase 101 U/L (40-110) 01/07/20 14:11 Creatine Kinase 70 U/L (29-168) 01/07/20 14:11 Serum Total Protein 7.5 g/dL (6.0-8.3) 01/07/20 14:11 Albumin 4.4 g/dL (3.4-4.8) 01/07/20 14:11 Lipase 27 U/L (8-78) 01/07/20 14:11 FMR H&P: A/P - Problem List (1) Symptomatic sinus bradycardia Current Visit: Yes Status: Acute Code(s): R00.1 - BRADYCARDIA, UNSPECIFIED (2) History of atrial fibrillation Current Visit: Yes Status: Acute Code(s): Z86.79 - PERSONAL HISTORY OF OTHER DISEASES OF THE CIRCULATORY SYSTEM (3) Congestive heart failure Current Visit: No Status: Acute Code(s): I50.9 - HEART FAILURE, UNSPECIFIED (4) Obstructive sleep apnea Current Visit: No Status: Resolved Code(s): G47.33 - OBSTRUCTIVE SLEEP APNEA (ADULT) (PEDIATRIC) - Plan 69 year old female presents with dizziness and weakness Symptomatic bradycardia - Admit to telemetry for continuous monitoring - EKG with sinus bradycardia (36 bpm) and Twave inversions throughout - Dizziness and weakness - Cardiology consulted; appreciate recs - Will start patient on dobutamine drip at 2.5 mcg/hr and increase to 5 mcg/hr if needed per Cardiology recommendations - Patient did take morning dose of eliquis this AM, so will not be candidate for procedure tomorrow. Will anticipate pacemaker placement on Wednesday. - Hold eliquis in anticipation of procedure - Hold Carvedilol and amiodarone given marked bradycardia. Patient did take medications this morning. - NPO at midnight on Wednesday night/Wednesday morning in preparation for pacemaker placement on Wednesday - Last COVID test 12/28/2019 HFrEF - Echo w/ EF 25-30% - Consider repeating echo during this hospitalization as it has been >3 months on medications - Continue Entresto - Will hold BB given bradycardia Hx Afib - Noted during July hospitalization - s/p cardioversion - On amiodarone and carvedilol - Cardioversion was scheduled for last Wednesday, but patient was in normal sinus rhythm so Dr. Jasmine opted not to perform - Monitor on telemetry - Will be holding amiodarone and BB due to marked sinus bradycardia DVT PPX: SCD's Code Status: Full Dispo: Admit to telemetry. Anticipate LOS >48 hours. FMR H&P: Upper Level - Plan Date/Time: 01/07/20 0847 I, [], have evaluated this patient and agree with findings/plan as outlined by jewelry internship resident. Pertinent changes/additions are listed here. Addendum - Attending - Attending Attestation Date/Time: 01/08/20 [id number] I personally evaluated the patient and discussed the management with Dr. Galan last night. I agree with the History, Examination, Assessment and Plan documented above with any addition or exceptions noted below.
[2020-01-07 17:07] VITALS: BMI 29.7
[2020-01-07] MEDS ORDERED: DOBUTamine 500 mg/250 ml 250 ML IVPB SCH (17:08)
[2020-01-07] MEDS ORDERED: Ondansetron ODT 4 MG TAB PO PRN (17:08)
[2020-01-07] MEDS ORDERED: Ondansetron PF 4 MG/2 ML Vial IVP PRN (17:08)
[2020-01-07] MEDS ORDERED: Fluticasone Propionate Nasal Spray 16 gm Bottle NASAL PRN (17:15)
[2020-01-07 18:13] LABS: Troponin I 0.014 ng/mL (< 0.028)
[2020-01-07 21:34] LABS: Troponin I 0.019 ng/mL (< 0.028)
[2020-01-08 04:35] LABS: Anion Gap 14 mmol/L (10-20); BUN (Urea Nitrogen) 20 mg/dL (9.8-20.1); Calc. Creatinine Clearance 73 mL/min (70-130); Calcium 8.9 mg/dL (7.8-10.44); Carbon Dioxide 21 mmol/L (23-31); Chloride 108 mmol/L (98-107); Estimated GFR-MDRD 52; Glucose 101 mg/dL (80-115); Potassium 4.2 mmol/L (3.5-5.1); Sodium 139 mmol/L (136-145)
--- NOTE | 2020-01-08 06:32 | PDOC.FM ---
- Subjective Subjective: Doing well this morning. States she is feeling stronger. - Objective MAR Reviewed: Yes Vital Signs & Weight: Vital Signs (12 hours) Temp Pulse Resp BP Pulse Ox 01/08/20 05:00 44 L 16 117/56 L 01/08/20 03:57 98.2 F 45 L 16 128/61 100 01/08/20 01:00 47 L 136/63 01/07/20 21:05 97.9 F 50 L 16 110/52 L 95 01/07/20 18:44 98 Weight Weight 90.991 kg Result Diagrams: 01/07/20 14:11 01/08/20 03:38 Phys Exam - Physical Examination Constitutional: NAD HEENT: PERRLA, moist MMs Neck: supple, full ROM Respiratory: no wheezing, no rales, no rhonchi, clear to auscultation bilateral Cardiovascular: RRR, no significant murmur, no rub Gastrointestinal: soft, non-tender Musculoskeletal: no edema, pulses present Neurological: non-focal, normal sensation, moves all 4 limbs Psychiatric: normal affect, A&O x 3 Skin: no rash, normal turgor Dx/Plan (1) History of atrial fibrillation Code(s): Z86.79 - PERSONAL HISTORY OF OTHER DISEASES OF THE CIRCULATORY SYSTEM Status: Acute (2) Symptomatic sinus bradycardia Code(s): R00.1 - BRADYCARDIA, UNSPECIFIED Status: Acute (3) Back pain Code(s): M54.9 - DORSALGIA, UNSPECIFIED Status: Acute (4) Congestive heart failure Code(s): I50.9 - HEART FAILURE, UNSPECIFIED Status: Acute - Plan Plan: Symptomatic bradycardia - Initial EKG with sinus bradycardia (36 bpm) and Twave inversions throughout - Cardiology consulted; appreciate recs - Will start patient on dobutamine drip at 2.5 mcg/hr and increase to 5 mcg/hr if needed per Cardiology recommendations - Hold eliquis in anticipation of procedure - Hold Carvedilol and amiodarone given bradycardia. - NPO at midnight on Wednesday night/Wednesday morning in preparation for pacemaker placement on Wednesday - Last COVID test 12/28/2019 (NEGATIVE) HFrEF - Echo w/ EF 25-30% - Consider repeating echo during this hospitalization as it has been >3 months on medications - Continue Entresto - Will hold BB given bradycardia Hx Afib - Cardioversion was scheduled for last Wednesday, but patient was in normal sinus rhythm so Dr. Jasmine opted not to perform - Monitor on telemetry - Will be holding amiodarone and BB due to marked sinus bradycardia DVT PPX: SCD's Code Status: Full Dispo: Admit to telemetry. Anticipate LOS >48 hours.
[2020-01-08] MEDS ORDERED: Prevnar 13-Val Conj/PF 0.5 ML SYRINGE IM ONE (09:00)
--- NOTE | 2020-01-08 13:17 | PRG ---
DATE OF SERVICE: 01/08/2020 ADDENDUM: This is an addendum to the note of Sujatha Sharif MD. Ms. Leal is a pleasant 69-year-old lady with a long history of atrial fibrillation. She had been placed on amiodarone and Coreg and developed a symptomatic bradycardia with a heart rate down into the 20s according to her . Her echo also demonstrates an EF of only 25% to 30%. Cardiology is likely going to place a pacemaker tomorrow. She is currently on a dobutamine drip to maintain pulse rate and blood pressure. We will continue to follow with Cardiology. Obviously, her Coreg and amiodarone have currently been held. Job ID: [id number]
--- NOTE | 2020-01-09 00:29 | CON ---
DATE OF CONSULTATION: 01/08/2020 INDICATION FOR CONSULTATION: A 69-year-old female with a history of atrial fibrillation, which was cardioverted back in July of this year. She was placed on amiodarone as well as Coreg and Eliquis. She presents again for not feeling well, was noted to be in bradycardia with heart rates in the 30s and 40s. She has been placed on IV dobutamine at this time. Previously, she had a decrease in ejection fraction. We have opted to repeat the echocardiogram today to see whether or not she has a cardiomyopathy that would entail perhaps a defibrillator rather than a pacemaker. Certainly, she will need to have some type of device implant due to her significant symptomatic bradycardia with her fatigue. The repeat echocardiogram did show the ejection fraction appears to be normal. This is, however, on 2.5 mcg/kg/min of dobutamine. However, this should not be significant enough to cause her normal ejection fraction should she have a cardiomyopathy. She has remained on the Eliquis also, her last dose of Eliquis was on Wednesday morning. She has had no Eliquis since that time and should be ready for a pacemaker insertion tomorrow. At this time, she did have, I believe some episodes of atrial fibrillation, mainly has remained in sinus rhythm, but appears to be sinus bradycardia. PAST MEDICAL HISTORY: Significant for cholecystectomy, tonsillectomy, history of atrial fibrillation, and history of cardiomyopathy, ejection fraction in the past was 25% to 30%, this may be due to the atrial fibrillation in the past. FAMILY HISTORY: + valvular heart disease , her brother and her mother, I believe one had an aortic valve replaced and one had a mitral valve replacement. SOCIAL HISTORY: No history of alcohol or tobacco abuse. She is . She has children, who are alive and well. ALLERGIES: SHE HAS AN ALLERGY TO LATEX. MEDICATIONS: Prior to admission included, 1. Amiodarone.200 bid 2. Coreg. 3.125 bid 3. Eliquis.5mg bid 4. Furosemide. 5. Pepcid AC. 6. Flonase. 7. Entresto one b.i.d. REVIEW OF SYSTEMS: The 12-point review of systems is relatively unremarkable except for the fatigue and some shortness of breath. She also has some mild lower extremity edema. Otherwise, she had no other significant complaints such as chest pain, shortness of breath, or dyspnea on exertion. She had no GI or complaints and no musculoskeletal complaints. Neurologically, no history of seizures or syncope. However, she did complain of some weakness and fatigue. PHYSICAL EXAMINATION: GENERAL: Reveals a middle-aged female, who is in no acute distress at this time. She is alert. She is oriented. VITAL SIGNS: Blood pressure 133/63, heart rates in the 50s and shows sinus rhythm. She is afebrile. O2 saturation 98%, respiratory rate is 18. HEENT: Shows head to be normocephalic and atraumatic. Carotid pulses are present. I did not hear any significant bruits. CHEST: Clear to auscultation. I did not hear any rales, rhonchi, or wheezing. CARDIOVASCULAR: Reveals a bradycardia. There were no gross murmurs, heaves, thrills, bruits, or rubs noted. ABDOMEN: Shows obesity with positive bowel sounds. No organomegaly or masses were noted. EXTREMITIES: Femoral pulses are present. Showed no clubbing, cyanosis, or edema. NEUROLOGIC: She appears to be fully intact. PSYCHOSOCIAL: She has no significant abnormalities. SKIN: Warm and dry. LABORATORY DATA: Sodium is 139, potassium is 4.2, chloride was 108, bicarb was 21, BUN was 20 with creatinine 1.05. Blood sugar was 101. Hemoglobin was 13.2, WBC was 9, and platelet count was 309,000. IMPRESSION: Elderly female with a history of atrial fibrillation in the past, which was converted to sinus rhythm. She is maintaining sinus rhythm. However, she has now become bradycardic on medications and most likely has some degree of sick sinus syndrome. We will schedule her for pacemaker insertion and then we will continue her medications to prevent further atrial fibrillation. She will be off the Eliquis for 48 hours prior to undergoing the procedure. I have explained the procedure and the risks to her to include bleeding, infection, possible pneumothorax, hemothorax, pericardial tamponade, or even . She understands and agrees to proceed. We will plan for pacemaker insertion tomorrow morning. For her other medical problems, she has sleep apnea also, she most likely will need to continue with the CPAP mask and this will be dealt with by the primary care service. She has some history in the past also of the atrial fibrillation and is maintaining sinus rhythm. She also has a history of some congestive heart failure, most likely some diastolic in nature, as well as systolic, but the systolic appears to have improved. We will further evaluate the echocardiogram, but just initial review of the echocardiogram while the wound care technician was performing the study, shows ejection fraction to be well preserved at this time. Job ID: [id number] MTDD
[2020-01-09 05:24] LABS: Anion Gap 14 mmol/L (10-20); BUN (Urea Nitrogen) 11 mg/dL (9.8-20.1); Calc. Creatinine Clearance 97 mL/min (70-130); Calcium 9.3 mg/dL (7.8-10.44); Carbon Dioxide 19 mmol/L (23-31); Chloride 109 mmol/L (98-107); Estimated GFR-MDRD 72; Glucose 109 mg/dL (80-115); Potassium 3.7 mmol/L (3.5-5.1); Sodium 138 mmol/L (136-145)
--- NOTE | 2020-01-09 07:24 | PDOC.FM ---
- Subjective Subjective: Doing well this morning. Anticipating having pacemaker placed today. - Objective MAR Reviewed: Yes Vital Signs & Weight: Vital Signs (12 hours) Temp Pulse Resp BP Pulse Ox 01/09/20 03:33 98.3 F 120 H 18 103/54 L 94 L 01/09/20 00:44 97 01/08/20 20:00 98.0 F 93 20 128/60 97 Weight Weight 91.626 kg Result Diagrams: 01/07/20 14:11 01/09/20 04:23 Phys Exam - Physical Examination Constitutional: NAD HEENT: moist MMs Neck: supple, full ROM Respiratory: no wheezing, no rales, no rhonchi, clear to auscultation bilateral Cardiovascular: no significant murmur, no rub Irregularly irregular Gastrointestinal: soft, non-tender Musculoskeletal: no edema Neurological: non-focal Psychiatric: normal affect Dx/Plan (1) History of atrial fibrillation Code(s): Z86.79 - PERSONAL HISTORY OF OTHER DISEASES OF THE CIRCULATORY SYSTEM Status: Acute (2) Symptomatic sinus bradycardia Code(s): R00.1 - BRADYCARDIA, UNSPECIFIED Status: Acute (3) Back pain Code(s): M54.9 - DORSALGIA, UNSPECIFIED Status: Acute (4) Congestive heart failure Code(s): I50.9 - HEART FAILURE, UNSPECIFIED Status: Acute - Plan Plan: Symptomatic bradycardia - Initial EKG with sinus bradycardia (36 bpm) and Twave inversions throughout - Cardiology consulted; appreciate recs - Will start patient on dobutamine drip at 2.5 mcg/hr and increase to 5 mcg/hr if needed per Cardiology recommendations - Hold eliquis in anticipation of procedure - Hold Carvedilol and amiodarone given bradycardia. - NPO at midnight on Wednesday night/Wednesday morning in preparation for pacemaker placement Today - Last COVID test 12/28/2019 (NEGATIVE) HFrEF - Echo w/ EF 25-30%. Repeat ECHO 55-60%. - Continue Entresto - Will hold BB given bradycardia Hx Afib - Monitor on telemetry - Will be holding amiodarone and BB due to marked sinus bradycardia DVT PPX: SCD's Code Status: Full Dispo: Admit to telemetry. Anticipate LOS >48 hours. Addendum - Attending - Attending Attestation Date/Time: 01/09/20 7084 I personally evaluated the patient and discussed the management with Dr. Sharif. I agree with the History, Examination, Assessment and Plan documented above with any addition or exceptions noted below. Patient now s/p PM placement for her suspected tachy-paty syndrome. Await further cardiology recs but hopeful she will be stable for discharge in the next 1-2 days.
[2020-01-09] MEDS ORDERED: CEFAZOLIN 2 GM in Premix Bag 1 BAG IVPB SCH (08:00)
[2020-01-09] MEDS ORDERED: Gentamicin 80 MG/2 ML VIAL ONE (08:45)
[2020-01-09] MEDS ORDERED: CEFAZOLIN 1 GM VIAL ONE (08:45)
[2020-01-09] MEDS ORDERED: Midazolam HCl 2 mg/2 ml Vial ONE (08:46)
--- NOTE | 2020-01-09 11:02 | RAD ---
EXAM: Single view of the chest HISTORY: Pacemaker placement COMPARISON: 01/07/2020 FINDINGS: Single view of the chest shows a normal sized cardiomediastinal silhouette. There is a lef t subclavian pacemaker with its leads in the right atrium and ventricle. No pneumothorax is seen. There is no evidence of consolidation, mass, or pleural effusion. The bones are unremarkable. IMPRESSION: Status post pacemaker placement without evidence of complication.
[2020-01-09] MEDS: Acetaminophen 325 MG TAB PO PRN (12:31)
--- NOTE | 2020-01-09 12:34 | PDOC.CPN ---
- Subjective Date: 01/09/20 Time: 12:44 Interval history: The pt seen and examined. No overnight events. The pt complains of pain to the PM site - Objective Allergies/Adverse Reactions: Allergies Allergy/AdvReac Type Severity Reaction Status Date / Time latex Allergy Verified 12/27/19 17:00 Visit Medications: Current Medications Acetaminophen (Tylenol) 650 mg PO Q6H PRN PRN Reason: Headache/Fever or Pain Last Admin: 01/09/20 12:31 Dose: 650 mg Amiodarone HCl (Cordarone) 200 mg PO TID DANNI Apixaban (Eliquis) 5 mg PO BID DANNI Fluticasone Propionate (Flonase Nasal [place]) 0 gm NASAL DAILYPRN PRN PRN Reason: Allergies Cefazolin Sodium/Dextrose 2 gm (/ Device) 50 mls @ 100 mls/hr IVPB WILLCALL DANNI Ondansetron HCl (Zofran Odt) 4 mg PO Q6H PRN PRN Reason: Nausea/Vomiting Ondansetron HCl (Zofran) 4 mg IVP Q6H PRN PRN Reason: Nausea/Vomiting Sacubitril/Valsartan (Entresto 24 Mg-26 Mg Tablet) 1 tab PO BID DANNI Last Admin: 01/09/20 10:36 Dose: 1 tab Sodium Chloride (Flush - Normal Saline) 10 ml IVF Q12HR DANNI Last Admin: 01/09/20 10:36 Dose: 10 ml Sodium Chloride (Flush - Normal Saline) 10 ml IVF PRN PRN PRN Reason: Saline Flush Vital Signs & Weight: Vital Signs Temp Pulse Resp BP Pulse Ox 01/09/20 11:23 98.4 F 96 14 117/82 96 01/09/20 07:55 98.5 F 93 16 122/56 L 96 01/09/20 03:33 98.3 F 120 H 18 103/54 L 94 L 01/09/20 00:44 97 Weight 202 lb - Physical Exam General: alert & oriented x3 HEENT: mucus membranes moist Neck: supple neck Cardiac: irregularly regular, S1/S2 - Labs Result Diagrams: 01/07/20 14:11 01/09/20 04:23 Troponin/CKMB Troponin I 0.019 ng/mL (< 0.028) 01/07/20 21:04 - Telemetry Supraventricular conduction: atrial fibrillation - Assessment/Plan Assessment/Plan: 1. Symptomatic bradycardia with s/p PM placement on 01/09/2020 2. Parox Afib with hx of DCCV in past - stable HR; on Amiodarone 200mg TID from 01/09/2020; will resume Coreg 3.125mg BID; on Eliquis 5mg BID from tomorrow 3. Chronic diastolic HF - stable 4. Sleep Apnea - on Cpap 5. Chronic Back pain MAR reviewed * The pt most likely d/c tomorrow * The pt will f/u with Dr Bautista' office in 10 days for the PM site check (or sending the pic of the site to Dr Bautista' office in 10 days) * The pt will f/u with Dr Mai' office as schedule. Pt. seen and eval. by me. She underwent pacemaker insertion this AM. I agree with the A/P by the SUPERVISOR [employer]URLING [employer] JOINING. She has converted bck to Afib. Perhaps with the amiodarone she will convert back to sinus. If not, early cardioversion. chica
[2020-01-09] MEDS ORDERED: Carvedilol 3.125 MG TAB PO SCH (12:45)
[2020-01-09] MEDS: Amiodarone 200 MG TAB PO SCH ×2 (16:09→20:18)
--- NOTE | 2020-01-09 16:32 | CCLSPC ---
INDICATION FOR PROCEDURE: A 69-year-old female with intermittent atrial fibrillation, treated with medical management, was in sinus rhythm and then developed severe bradycardia, which was symptomatic. She was brought to the hospital where the anti-tachycardiac medicines were discontinued. She was on Coreg and I believe amiodarone. These were both discontinued, and then the patient again developed atrial fibrillation with rapid ventricular response. She was advised to undergo a dual chamber pacemaker insertion so that we could manage her medically to avoid the bradycardia associated with medication. PROCEDURE IN DETAIL: She was taken to the cardiac floating labor gang supervisor where she was prepped and draped in a sterile fashion. She was given 2 mg of IV versed for conscious sedation. Throughout the procedure, she was monitored by an independent observer present for heart rate, blood pressure, and O2 saturation without any other difficulties or complications. The dual-chamber pacemaker from [employer] was inserted. This was an Kathya MRI compatible device with atrial therapies with two screw-in leads, one in the atrium and one in the ventricle. There were no other difficulties or complications encountered. The pacemaker was set with the upper rate of 120. The lower rate was set at 60. The full dictated note can be found in the chart. Job ID: [id number]
[2020-01-09] MEDS: Carvedilol 3.125 MG TAB PO SCH (20:18)
[2020-01-10 04:53] LABS: Anion Gap 11 mmol/L (10-20); BUN (Urea Nitrogen) 16 mg/dL (9.8-20.1); Calc. Creatinine Clearance 95 mL/min (70-130); Carbon Dioxide 21 mmol/L (23-31); Chloride 108 mmol/L (98-107); Estimated GFR-MDRD 70; Glucose 118 mg/dL (80-115); Potassium 3.9 mmol/L (3.5-5.1); Sodium 136 mmol/L (136-145)
--- NOTE | 2020-01-10 06:54 | PDOC.FM ---
- Subjective Subjective: Patient is feeling much better this morning than yesterday. Pain is well controlled. - Objective MAR Reviewed: Yes Vital Signs & Weight: Vital Signs (12 hours) Temp Pulse Resp BP Pulse Ox 01/10/20 05:26 93 L 01/10/20 03:30 98.7 F 85 16 135/89 93 L 01/09/20 23:42 87 123/70 01/09/20 20:00 98 01/09/20 19:57 98.1 F 76 18 121/62 94 L Weight Weight 89.811 kg Result Diagrams: 01/07/20 14:11 01/10/20 04:13 Phys Exam - Physical Examination Constitutional: NAD HEENT: moist MMs, sclera anicteric Neck: supple, full ROM Respiratory: no wheezing, no rales, no rhonchi, clear to auscultation bilateral Cardiovascular: no significant murmur, no rub HR irregularly irregular. Gastrointestinal: soft, non-tender Musculoskeletal: no edema Neurological: non-focal, normal sensation Psychiatric: normal affect, A&O x 3 Deviation from normal: Pacemaker incision clean dry and intact with dermabond. No rash. Dx/Plan (1) History of atrial fibrillation Code(s): Z86.79 - PERSONAL HISTORY OF OTHER DISEASES OF THE CIRCULATORY SYSTEM Status: Acute (2) Symptomatic sinus bradycardia Code(s): R00.1 - BRADYCARDIA, UNSPECIFIED Status: Acute (3) Back pain Code(s): M54.9 - DORSALGIA, UNSPECIFIED Status: Acute (4) Congestive heart failure Code(s): I50.9 - HEART FAILURE, UNSPECIFIED Status: Acute - Plan Plan: Symptomatic bradycardia - s/p pacemaker placement 01/09/2020. - Possible d/c today, depending on cardiology recs in regards to a-fib. - Restarted Amiodarone, Coreg, and Entresto. HFrEF - Echo w/ EF 25-30%. Repeat ECHO 55-60%. - Continue Entresto - Will hold BB given bradycardia Atrial fibrillation, rate controlled, on anticoagulation - Will resume Eliquis today. Will await cardiology recommendations for further management. - Monitor on telemetry DVT PPX: SCD's Code Status: Full Dispo: pending cardiology approval, stable for d/c. Addendum - Attending - Attending Attestation Date/Time: 01/10/20 1020 I personally evaluated the patient and discussed the management with Dr. Sharif. I agree with the History, Examination, Assessment and Plan documented above with any addition or exceptions noted below. Patient overall feeling improved. She is going for SONI and Cardioversion later today due to recurrence of Afib. Further mgmt pending Cardiology recs.
--- NOTE | 2020-01-10 09:33 | PDOC.CPN ---
- Subjective Date: 01/10/20 Time: 08:30 Interval history: The pt seen and examined. No overnight events. No Cardiac complaints. The PM site is RICCO with no drainage, mild hematoma and swelling - Objective Allergies/Adverse Reactions: Allergies Allergy/AdvReac Type Severity Reaction Status Date / Time latex Allergy Verified 12/27/19 17:00 Visit Medications: Current Medications Acetaminophen (Tylenol) 650 mg PO Q6H PRN PRN Reason: Headache/Fever or Pain Last Admin: 01/09/20 12:31 Dose: 650 mg Amiodarone HCl (Cordarone) 200 mg PO TID [facility] Last Admin: 01/09/20 20:18 Dose: 200 mg Apixaban (Eliquis) 5 mg PO BID [facility] Carvedilol (Coreg) 3.125 mg PO BID [facility] Last Admin: 01/09/20 20:18 Dose: 3.125 mg Fluticasone Propionate (Flonase Nasal [place]) 0 gm NASAL DAILYPRN PRN PRN Reason: Allergies Cefazolin Sodium/Dextrose 2 gm (/ Device) 50 mls @ 100 mls/hr IVPB WILLCALL [facility] Ondansetron HCl (Zofran Odt) 4 mg PO Q6H PRN PRN Reason: Nausea/Vomiting Ondansetron HCl (Zofran) 4 mg IVP Q6H PRN PRN Reason: Nausea/Vomiting Sacubitril/Valsartan (Entresto 24 Mg-26 Mg Tablet) 1 tab PO BID [facility] Last Admin: 01/09/20 20:20 Dose: 1 tab Sodium Chloride (Flush - Normal Saline) 10 ml IVF Q12HR [facility] Last Admin: 01/09/20 20:21 Dose: 10 ml Sodium Chloride (Flush - Normal Saline) 10 ml IVF PRN PRN PRN Reason: Saline Flush Vital Signs & Weight: Vital Signs Temp Pulse Resp BP Pulse Ox 01/10/20 07:50 95 01/10/20 07:46 97.6 F 80 16 129/81 95 01/10/20 05:26 93 L 01/10/20 03:30 98.7 F 85 16 135/89 93 L 01/09/20 23:42 87 123/70 Weight 198 lb - Physical Exam General: alert & oriented x3 HEENT: mucus membranes moist Neck: supple neck Cardiac: irregularly regular Lungs: clear to auscultation Neuro: cranial nerve 2-12 intact Extremities: no edema Musculoskeletal: no fluid collection - Labs Result Diagrams: 01/07/20 14:11 01/10/20 04:13 Troponin/CKMB Troponin I 0.019 ng/mL (< 0.028) 01/07/20 21:04 - Telemetry Supraventricular conduction: atrial fibrillation - Assessment/Plan Assessment/Plan: 1. Symptomatic bradycardia with s/p PM placement on 01/09/2020 2. Parox Afib with hx of DCCV in past - still in Afib with stable HR; on Amiodarone 200mg TID from 01/09/2020; will resume Coreg 3.125mg BID; on Eliquis 5mg BID from today; plan for DCCV only today by Dr Bautista 3. Chronic diastolic HF - stable 4. Sleep Apnea - on Cpap 5. Chronic Back pain MAR reviewed * Plan for DCCV today * The pt will f/u with Dr Bautista' office in 10 days for the PM site check (or sending the pic of the site to Dr Bautista' office in 10 days) * The pt will f/u with Dr Mai' office as schedule. Pt. seen and eval. by me. I agree with the A/P by the METHODS TIME ANALYST. Hopefully the cardioversion will be successful.
[2020-01-10] MEDS: Amiodarone 200 MG TAB PO SCH ×3 (10:05→20:34)
[2020-01-10] MEDS: Carvedilol 3.125 MG TAB PO SCH ×2 (10:05→20:35)
[2020-01-10] MEDS ORDERED: PROPOFOL 200 MG/20 ML VIAL ONE (11:27)
[2020-01-10] MEDS ORDERED: PROPOFOL 20 ML ONE (13:00)
[2020-01-10] MEDS ORDERED: Hydrocortisone 1% Cream 30 GM TUBE ONE (14:31)
[2020-01-10] MEDS ORDERED: Hydrocortisone 1% Cream 30 GM TUBE TOP PRN (15:07)
[2020-01-10] MEDS: Apixaban 5 MG TAB PO SCH ×2 (15:44→20:34)
--- NOTE | 2020-01-10 18:19 | CON ---
DATE OF CONSULTATION: 01/10/2020 REASON FOR CONSULTATION: Atrial fibrillation. Consultation performed by Dr. Alfonzo Jasmine. HISTORY OF PRESENT ILLNESS: Ms. Leal is a 69-year-old female with a history of atrial fibrillation. She also has tachy-paty syndrome. She underwent cardioversion in July 2019 and was placed on amiodarone in addition to Coreg and Eliquis. Her amiodarone has frequently required dose reduction and transient stopping due to bradycardia. She also had developed cardiomyopathy and underwent cardiac evaluation with her tonnage compilation clerk, Dr. Graciela Bautista. It is felt that the atrial fibrillation contributed to her decline in ejection fraction. She was initially referred to my service for atrial fibrillation management in addition to her cardiomyopathy and potential need for an ICD. She presented to the hospital on 01/07 with symptomatic bradycardia with heart rates in the 30s and 40s. She was placed on dobutamine and repeat echocardiogram was performed, which showed a preserved/normalized ejection fraction. Her amiodarone was increased to a loading dose, and today, she underwent a dual-chamber pacemaker implant with attempted cardioversion. Unfortunately, the cardioversion attempts x3 were unsuccessful. EP consultation has been placed regarding her atrial fibrillation management refractory to amiodarone and treatment options. Ms. Leal overall feels well, but fatigued. She is now recovered from recent pacemaker and attempted cardioversion. Fatigue has been her primary complaint while in atrial fibrillation. She is tolerating Eliquis for anticoagulation without bleeding dyscrasias. Otherwise, she voices no cardiac complaints or concerns today. REVIEW OF SYSTEMS: A 12-point review of systems was positive for fatigue and tiredness, otherwise unremarkable. PAST MEDICAL HISTORY: 1. Atrial fibrillation, status post cardioversion in July 2019. 2. Tachy-paty syndrome. 3. Nonischemic cardiomyopathy, EF previously 25% to 30%, now recovered by echo on 01/09/2020. 4. Cholecystectomy. 5. Tonsillectomy. FAMILY HISTORY: Positive for valvular heart disease with her mother and her brother. SOCIAL HISTORY: Negative for alcohol or tobacco use. No illicit drug use. She is , with children. ALLERGIES: LATEX. MEDICATIONS: Prior to admission include; 1. Amiodarone 200 mg b.i.d. 2. Coreg 3.125 mg b.i.d. 3. Eliquis 5 mg b.i.d. 4. Furosemide. 5. Pepcid. 6. Flonase. 7. Entresto b.i.d. OBJECTIVE: VITAL SIGNS: Temperature 98.1 degrees Fahrenheit, pulse 94, blood pressure 174/79, respirations 16, and oxygen 95% on room air. GENERAL: The patient is alert and oriented. Speech is clear. Affect is appropriate. She is in no apparent distress at the time of the exam. HEENT: She is normocephalic and atraumatic. Sclerae are anicteric. EOMs are intact. Oral mucosa is moist and pink with adequate dentition. HEART: Rate is irregularly irregular. PMI nondisplaced. LUNGS: Clear to auscultation without wheezes, crackles, or rhonchi. ABDOMEN: Obese, soft, and nontender without palpable masses. EXTREMITIES: Warm and dry to touch. Well perfused without clubbing, cyanosis, or edema. NEUROLOGIC: Grossly intact and nonfocal. Gait was not assessed. DATABASE: EKG shows atrial fibrillation. LABORATORY DATA: Hematology is unremarkable. Platelet count 309. Chemistry; potassium 3.9, creatinine 0.81. Serial troponins were negative. Liver enzymes within normal ranges. Echocardiogram on 01/08/2020, ejection fraction is 55% to 60% with diastolic dysfunction. Left atrium is normal in size. Right atrium is normal in size. Mild regurgitation is noted in all four valves. Left atrial dimension is 3.46 cm. IMPRESSION: 1. Persistent atrial fibrillation, refractory to amiodarone. 2. Tachy-paty syndrome. 3. Dual-chamber pacemaker placed on 01/10/2020. 4. Anticoagulation with Eliquis for CHADS-VASc score of 4 on the basis of female gender, advancing age, history of heart failure, and hypertension. 5. Hypertension. PLAN AND RECOMMENDATIONS: Ms. Leal is persisting in atrial fibrillation despite recent increase in her amiodarone therapy. She has symptoms with her atrial fibrillation of fatigue, shortness of breath, in addition to some peripheral edema. Her ejection fraction has normalized and she underwent a pacemaker implant to address her tachy-paty syndrome. Long-term, rather than keep her on a high dose of amiodarone which is minimally effective at best, I would advocate for pulmonary venous isolation ablation. We discussed the treatment options at length, detailing the risks, benefits, and alternatives to ablation. With the persistent atrial fibrillation, she may require repeat ablation to ultimately restore sinus rhythm. She is agreeable to this. In light of her recently placed pacemaker, we will pursue rate control with AV hiro blocking agents as needed and plan for an ablation at least 30 days post pacemaker implant to allow the leads to heal into place. I will see her back in clinic in 4 weeks. In the meantime, we will optimize Coreg and diltiazem, possibly adding digoxin if needed for rate control. Thank you for allowing me to participate in the care of this patient. Job ID: [id number]
--- NOTE | 2020-01-11 06:35 | PDOC.FM ---
- Subjective Subjective: Doing well this morning. States she is ready to go home. Feeling well post- procedure. - Objective MAR Reviewed: Yes Vital Signs & Weight: Vital Signs (12 hours) Temp Pulse Resp BP Pulse Ox 01/11/20 04:00 97.6 F 64 15 132/74 98 01/10/20 19:19 97.8 F 75 16 130/59 L 96 Weight Weight 89.811 kg I&O: 01/09/20 01/10/20 01/11/20 06:59 06:59 06:59 Intake Total 200 300 Output Total 250 450 Balance -50 -150 Result Diagrams: 01/07/20 14:11 01/10/20 04:13 Phys Exam - Physical Examination Constitutional: NAD HEENT: moist MMs, sclera anicteric Neck: supple, full ROM Respiratory: no wheezing, no rales, clear to auscultation bilateral Cardiovascular: no significant murmur, no rub Atrial fibrillation on telemetry, irregularly irregular rhythm. Gastrointestinal: soft, non-tender Musculoskeletal: no edema, pulses present Neurological: non-focal, moves all 4 limbs Psychiatric: normal affect, A&O x 3 Deviation from normal: Incision clean dry and intact with dermabond. Dx/Plan (1) History of atrial fibrillation Code(s): Z86.79 - PERSONAL HISTORY OF OTHER DISEASES OF THE CIRCULATORY SYSTEM Status: Acute (2) Symptomatic sinus bradycardia Code(s): R00.1 - BRADYCARDIA, UNSPECIFIED Status: Acute (3) Back pain Code(s): M54.9 - DORSALGIA, UNSPECIFIED Status: Acute (4) Congestive heart failure Code(s): I50.9 - HEART FAILURE, UNSPECIFIED Status: Acute - Plan Plan: Symptomatic bradycardia - s/p pacemaker placement 01/09/2020. - s/p unsuccessful cardioversion 01/10/20. EP Consulted, appreciate recommendations. - Restarted Amiodarone, Coreg, and Entresto. - Cardiology consulted, appreciate recommendations. HFrEF - Echo w/ EF 25-30%. Repeat ECHO 55-60%. - Continue Entresto Atrial fibrillation, rate controlled, on anticoagulation - Monitor on telemetry DVT PPX: SCD's Code Status: Full Dispo: Will await specialist recommendations for further medication management. Addendum - Attending - Attending Attestation Date/Time: 06/25/20 1118 I personally evaluated the patient and discussed the management with Dr. Sharif. I agree with the History, Examination, Assessment and Plan documented above with any addition or exceptions noted below. Patient overall stable. Awaiting further recs from Cardiology and EP regarding her treatment.
[2020-01-11] MEDS: Amiodarone 200 MG TAB PO SCH (08:41)
[2020-01-11] MEDS: Carvedilol 3.125 MG TAB PO SCH (08:43)
[2020-01-11] MEDS: Apixaban 5 MG TAB PO SCH ×2 (08:43→20:09)
--- NOTE | 2020-01-11 09:09 | CCLSPC ---
INDICATION FOR PROCEDURE: A 69-year-old female, who presented with atrial fibrillation with rapid ventricular response, who was actually converted back to sinus rhythm. She then had significant bradycardia and was felt to have sick sinus syndrome. She underwent pacemaker insertion. Just prior to a few hours before having the pacemaker implanted, she did go back into atrial fibrillation. It was felt that she could continue medical management, and then she would be converted back to sinus rhythm. Unfortunately, she has not converted back to sinus rhythm despite being on the amiodarone, and she was advised to proceed with electrocardioversion for atrial fibrillation in hopes that the medications would keep her in sinus rhythm and the pacemaker was already in place. We opted to try electrocardioversion for atrial fibrillation. PROCEDURE: She was taken to the recovery, where she underwent the procedure today. We attempted 3 times at 200 joules, 300 joules, and 360 joules. Unfortunately, she did not convert to sinus rhythm and maintained this, except for a very short period at the 200 joules, she did convert to sinus rhythm, just for a few beats, and then converted back to the atrial fibrillation. At this time, we will continue the amiodarone as well as Eliquis and her Coreg. We will re-discuss her case with the swiss type screw machine operator for possible changes in her medications or for possible ablation of the atrial fibrillation. She tolerated the procedure well without difficulties or complications. She was given short-acting propofol by the anesthesiologist for the procedure. Job ID: [id number]
--- NOTE | 2020-01-11 11:29 | RAD ---
Exam: Chest one view HISTORY:Pacemaker check Comparison: 01/09/2020 FINDINGS: Cardiac silhouette: Normal Aorta: Atherosclerosis Pacing device: Stable dual lead left-sided transvenous pacemaker with lead positioned over the right atrium and right ventricle. Pulmonary vessels: Normal Costophrenic angles: Clear LUNGS: No masses or consolidation. Pneumothorax: None Osseous abnormalities: None IMPRESSION: 1. Atherosclerosis 2. Stable positioning of a left-sided transvenous pacemaker
--- NOTE | 2020-01-11 14:33 | RAD ---
PA AND LATERAL CHEST: 01/11/20 INDICATIONS: Pacemaker placement. FINDINGS: Lungs are clear. Heart and mediastinum are unremarkable with mild aortic calcification. A dual lead pacemaker device is again seen in place via the left subclavian vein. The leads are uncha nged from 01/11/20. A right atrial leads overlies the more inferior aspect of the right atrium. A righ t ventricular lead appears adequately positioned. IMPRESSION: No interval change from 01/11/20. POS: AGW
--- NOTE | 2020-01-11 15:34 | PDOC.CPN ---
- Subjective Date: 01/11/20 Time: 13:00 - Review of Systems General: denies: fever/chills, weight/appetite/sleep changes, night sweats, fatigue Respiratory: denies: cough, congestion, shortness of breath, exercise intolerance Cardiovascular: denies: chest pain, palpitation, edema, paroxysmal nocturnal dyspnea, orthopnea Gastrointestinal: denies: nausea, vomiting, diarrhea, constipation, abd pain, GI bleeding Musculoskeletal: denies: pain, tenderness, stiffness, swelling, arthritis/ arthralgias Neurological: denies: numbness, syncope, seizure, weakness - Objective Allergies/Adverse Reactions: Allergies Allergy/AdvReac Type Severity Reaction Status Date / Time latex Allergy Verified 12/27/19 17:00 Visit Medications: Current Medications Acetaminophen (Tylenol) 650 mg PO Q6H PRN PRN Reason: Headache/Fever or Pain Last Admin: 01/09/20 12:31 Dose: 650 mg Apixaban (Eliquis) 5 mg PO BID [facility] Last Admin: 01/11/20 08:43 Dose: 5 mg Carvedilol (Coreg) 6.25 mg PO BID-[facility] Diltiazem HCl (Cardizem Cd) 120 mg PO DAILY [facility] Fluticasone Propionate (Flonase Nasal [place]) 0 gm NASAL DAILYPRN PRN PRN Reason: Allergies Hydrocortisone/Aloe (Hydrocortisone 1% Cream) 0 gm TOP BIDPRN PRN PRN Reason: IRRITATION AT DEFIB PAD SITES Cefazolin Sodium/Dextrose 2 gm (/ Device) 50 mls @ 100 mls/hr IVPB WILLCALL [facility] Ondansetron HCl (Zofran Odt) 4 mg PO Q6H PRN PRN Reason: Nausea/Vomiting Ondansetron HCl (Zofran) 4 mg IVP Q6H PRN PRN Reason: Nausea/Vomiting Sacubitril/Valsartan (Entresto 24 Mg-26 Mg Tablet) 1 tab PO BID [facility] Last Admin: 01/11/20 08:43 Dose: 1 tab Sodium Chloride (Flush - Normal [place]) 10 ml IVF Q12HR [facility] Last Admin: 01/11/20 08:43 Dose: 10 ml Sodium Chloride (Flush - Normal Saline) 10 ml IVF PRN PRN PRN Reason: Saline Flush Sodium Chloride (Flush - Normal Saline) 10 ml IVF Q12HR [facility] Sodium Chloride (Flush - Normal Saline) 10 ml IVF PRN PRN PRN Reason: Saline Flush Vital Signs & Weight: Vital Signs Temp Pulse Resp BP Pulse Ox 01/11/20 15:24 97.6 F 60 20 116/61 97 01/11/20 12:03 74 01/11/20 11:09 98.9 F 74 20 128/77 94 L 01/11/20 07:15 96 01/11/20 07:11 97.5 F L 81 20 135/70 96 01/11/20 04:00 97.6 F 64 15 132/74 98 Weight 198 lb - Quality Measures Condition: Atrial Fibrillation/Flutter (hx or current) CV meds: Beta Geeta: Yes - Physical Exam HEENT: normocephaly Neck: supple neck, no JVD/HJR Cardiac: irregularly regular Lungs: clear to auscultation Neuro: grossly intact Abdomen: unremarkable Extremities: no edema - Labs Result Diagrams: 01/07/20 14:11 01/10/20 04:13 Troponin/CKMB Troponin I 0.019 ng/mL (< 0.028) 01/07/20 21:04 - EKG Interpretation EKG shows: atrial fibrillation (occasional v-pacing.) - Telemetry Supraventricular conduction: atrial fibrillation (pacemaker - atrial lead undersensing. Reprogrammed. CXR indicates the atrial lead is displaced.) - Assessment/Plan Assessment/Plan: 1. Symptomatic bradycardia with s/p PM placement on 01/09/2020 2. Parox Afib with hx of DCCV in past - still in Afib with stable HR; on Amiodarone 200mg TID from 01/09/2020; will resume Coreg 3.125mg BID; on Eliquis 5mg BID from today; DCCV yesterday was unsuccessful. 3. Chronic diastolic HF - stable 4. Sleep Apnea - on Cpap 5. Chronic Back pain 6. pacemaker lead malfunction with displacement. Plan to reposition today. procedure explained to ptGerald dc
[2020-01-11] MEDS ORDERED: CEFAZOLIN 1 GM VIAL ONE (16:26)
[2020-01-11] MEDS ORDERED: Gentamicin 80 MG/2 ML VIAL ONE (16:26)
--- NOTE | 2020-01-11 16:26 | PDOC.EP ---
- Subjective Date: 01/11/20 Time: 08:00 Interval History: Follow-up for atrial arrhythmia management. she feels tired fatigued but otherwise no significant concerns have presented since yesterday - Review of Systems Constitutional: denies: chills, fever, malaise, sweats, weakness Respiratory: denies: cough, dry, shortness of breath, wheezing Cardiology: denies: chest pain, heart racing, light headedness, palpitations, passing out Gastrointestinal: denies: abdominal pain, constipation - Objective Allergies/Adverse Reactions: Allergies Allergy/AdvReac Type Severity Reaction Status Date / Time latex Allergy Verified 12/27/19 17:00 Current Medications Acetaminophen (Tylenol) 650 mg PO Q6H PRN PRN Reason: Headache/Fever or Pain Last Admin: 01/09/20 12:31 Dose: 650 mg Apixaban (Eliquis) 5 mg PO BID [facility] Last Admin: 01/11/20 08:43 Dose: 5 mg Carvedilol (Coreg) 6.25 mg PO BID-[facility] Diltiazem HCl (Cardizem Cd) 120 mg PO DAILY [facility] Fluticasone Propionate (Flonase Nasal [place]) 0 gm NASAL DAILYPRN PRN PRN Reason: Allergies Hydrocortisone/Aloe (Hydrocortisone 1% Cream) 0 gm TOP BIDPRN PRN PRN Reason: IRRITATION AT DEFIB PAD SITES Cefazolin Sodium/Dextrose 2 gm (/ Device) 50 mls @ 100 mls/hr IVPB WILLCALL [facility] Ondansetron HCl (Zofran Odt) 4 mg PO Q6H PRN PRN Reason: Nausea/Vomiting Ondansetron HCl (Zofran) 4 mg IVP Q6H PRN PRN Reason: Nausea/Vomiting Sacubitril/Valsartan (Entresto 24 Mg-26 Mg Tablet) 1 tab PO BID [facility] Last Admin: 01/11/20 08:43 Dose: 1 tab Sodium Chloride (Flush - Normal [place]) 10 ml IVF Q12HR [facility] Last Admin: 01/11/20 08:43 Dose: 10 ml Sodium Chloride (Flush - Normal Saline) 10 ml IVF PRN PRN PRN Reason: Saline Flush Sodium Chloride (Flush - Normal Saline) 10 ml IVF Q12HR [facility] Sodium Chloride (Flush - Normal Saline) 10 ml IVF PRN PRN PRN Reason: Saline Flush Vital Signs & Weight: Vital Signs Temp Pulse Resp BP Pulse Ox 01/11/20 15:24 97.6 F 60 20 116/61 97 01/11/20 12:03 74 01/11/20 11:09 98.9 F 74 20 128/77 94 L 01/11/20 07:15 96 01/11/20 07:11 97.5 F L 81 20 135/70 96 Weight 198 lb I/O: I/O 01/10/20 01/11/20 01/12/20 06:59 06:59 06:59 Intake Total 200 300 Output Total 250 450 Balance -50 -150 - Quality Measures Condition: Atrial Fibrillation/Flutter (hx or current) CV meds: Eliquis: Yes - Physical Exam General: alert & oriented x3, appears well, no apparent distress, speech clear, affect appropriate HEENT: mucus membranes moist, normocephaly Neck: supple neck, midline trachea, no lymphadenopathy Cardiology: PMI nondisplaced, irregularly irregular Lungs: clear to auscultation, no wheeze, rales, rhonchi Neurology: cranial nerve 2-12 intact, grossly intact, no lateralizing findings Abdomen: unremarkable, active bowel sounds, no pulsations/bruits Skin: left sided device, swelling. negative: bruising, drainage, hematoma - Chadsvasc Risk factors Congestive heart failure: 1 Hypertension: 1 Age 65-74: 1 Female: 1 Risk Score: 4 - Labs Result Diagrams: 01/07/20 14:11 01/10/20 04:13 - EKG Interpretation EKG Method: Telemetry EKG shows: Atypical atrial flutter - Assessment/Plan Assessment/Plan: 1. Persistent atrial fibrillation, refractory to amiodarone. 2. Tachy-paty syndrome. 3. Dual-chamber pacemaker placed on 01/10/2020. 4. Anticoagulation with Eliquis for CHADS-VASc score of 4 on the basis of female gender, advancing age, history of heart failure, and hypertension. 5. Hypertension. rhythm is organized slightly into atypical atrial flutter. Heart rates are moderately controlled. had a long discussion with Ms. Leal and her . Our plan moving forward for her atrial arrhythmia management is as follows. Wait 30 days post pacemaker implant to allow the leads to heal into place, and pursue rate control alone with gradual titration of AV hiro blocking medications as required to achieve rate control, concurrently treating her hypertension. After 1 months time she will follow up in our office and we will make arrangements for a PVAI ablation. I have discussed in detail the rationale for atrial fibrillation ablation, along with the inherent risks. These include but are not limited to infection, damage to blood vessels, hemo/pneumothrax, pericardial tamponade, atrio-esophageal fistula, stroke, myocardial infarction, arrhythmia recurrence, need for repeat ablations, and . anticoagulation will be continued and has already been resumed. Today I added low-dose diltiazem as well as increasing Coreg starting this evening
[2020-01-11] MEDS ORDERED: Midazolam HCl 2 mg/2 ml Vial ONE (17:16)
--- NOTE | 2020-01-11 17:39 | EKG ---
Test Reason : POST PACEMAKER Blood Pressure : / mmHG Vent. Rate : 095 BPM Atrial Rate : 129 BPM P-R Int : 000 ms QRS Dur : 148 ms QT Int : 444 ms P-R-T Axes : 000 004 043 degrees QTc Int : 557 ms Atrial fibrillation Right bundle branch block T wave abnormality, consider lateral ischemia or digitalis effect Abnormal ECG When compared with ECG of 07-JAN-2020 14:06, (Unconfirmed) Atrial fibrillation has replaced Sinus rhythm Vent. rate has increased BY 59 BPM Right bundle branch block is now Present Confirmed by DR. Ange SOLER ([id number]) on 01/11/2020 5:39:47 PM Referred By: GEOFF Confirmed By:DR. Ange SOLER
[2020-01-11] MEDS ORDERED: HYDROcodone/Acetaminophen 5/325 mg Tablet PO PRN (18:18)
[2020-01-11] MEDS: Carvedilol 6.25 MG TAB PO SCH (18:47)
[2020-01-11] MEDS: Cephalexin 250 MG CAP PO SCH (20:09)
--- NOTE | 2020-01-11 20:13 | RAD ---
PORTABLE CHEST: 01/11/20 HISTORY: Cardiac device placement. COMPARISON: Earlier exam of the same day. Heart size is within normal limits. There are atherosclerotic changes of the aorta. Pacemaker is pres ent. No pneumothorax or infiltrates. IMPRESSION: Stable exam. POS: [facility]
--- NOTE | 2020-01-12 06:54 | PDOC.FM ---
- Subjective Subjective: Doing well this morning. No concerns. Denies pain or shortness of breath. Eager to go home. - Objective MAR Reviewed: Yes Vital Signs & Weight: Vital Signs (12 hours) Temp Pulse Resp BP Pulse Ox 01/12/20 03:40 97.6 F 69 20 143/69 H 96 01/11/20 20:00 98.6 F 70 18 131/61 96 Weight Weight 90.265 kg I&O: 01/10/20 01/11/20 01/12/20 06:59 06:59 06:59 Intake Total 200 300 960 Output Total 250 450 700 Balance -50 -150 260 Result Diagrams: 01/07/20 14:11 01/10/20 04:13 Phys Exam - Physical Examination Constitutional: NAD HEENT: moist MMs, sclera anicteric Neck: supple Respiratory: no wheezing, no rales, no rhonchi, clear to auscultation bilateral Cardiovascular: no significant murmur, no rub paced rhythm Gastrointestinal: soft, non-tender Musculoskeletal: no edema Neurological: non-focal Psychiatric: normal affect, A&O x 3 Deviation from normal: Incision clean, dry and intact with dermabond. Dx/Plan (1) History of atrial fibrillation Code(s): Z86.79 - PERSONAL HISTORY OF OTHER DISEASES OF THE CIRCULATORY SYSTEM Status: Acute (2) Symptomatic sinus bradycardia Code(s): R00.1 - BRADYCARDIA, UNSPECIFIED Status: Acute (3) Back pain Code(s): M54.9 - DORSALGIA, UNSPECIFIED Status: Acute (4) Congestive heart failure Code(s): I50.9 - HEART FAILURE, UNSPECIFIED Status: Acute - Plan Plan: Symptomatic bradycardia, resolved - s/p pacemaker placement 01/09/2020. - EP and Cardiology consulted, appreciate recommendations. - Restarted Entresto. DISCONTINUED AMIODARONE. Started diltiazem. Increased Coreg. - Will await cardiology clearance for discharge. HFrEF - Echo w/ EF 25-30%. Repeat ECHO 55-60%. - Continue Entresto Atrial fibrillation, rate controlled, on anticoagulation - Monitor on telemetry DVT PPX: SCD's Code Status: Full Dispo: Will await specialist recommendations for further medication management. Addendum - Attending - Attending Attestation Date/Time: 01/12/20 1010 I personally evaluated the patient and discussed the management with Dr. Sharif. I agree with the History, Examination, Assessment and Plan documented above with any addition or exceptions noted below.
[2020-01-12 07:22] VITALS: BP 132/63; TEMP 98
[2020-01-12] MEDS: Carvedilol 6.25 MG TAB PO SCH (08:34)
[2020-01-12] MEDS: Apixaban 5 MG TAB PO SCH (08:34)
[2020-01-12] MEDS: Cephalexin 250 MG CAP PO SCH (08:34)
[2020-01-12] MEDS: Acetaminophen 325 MG TAB PO PRN (08:34)
[2020-01-12] MEDS ORDERED: Prevnar 13-Val Conj/PF 0.5 ML SYRINGE IM ONE (08:45)
--- NOTE | 2020-01-12 10:19 | PDOC.CPN ---
- Subjective Date: 01/12/20 Time: 09:00 Interval history: The pt seen and examined. No overnight events. No cardiac complaints. - Objective Allergies/Adverse Reactions: Allergies Allergy/AdvReac Type Severity Reaction Status Date / Time latex Allergy Verified 12/27/19 17:00 Visit Medications: Current Medications Acetaminophen (Tylenol) 650 mg PO Q6H PRN PRN Reason: Headache/Fever or Pain Last Admin: 01/12/20 08:34 Dose: 650 mg Hydrocodone Bitart/Acetaminophen (Steele 5/325) 1 tab PO Q4H PRN PRN Reason: Mild Pain (1-3) Last Admin: 01/11/20 18:46 Dose: 1 tab Apixaban (Eliquis) 5 mg PO BID [facility] Last Admin: 01/12/20 08:34 Dose: 5 mg Carvedilol (Coreg) 6.25 mg PO BID-[facility] Last Admin: 01/12/20 08:34 Dose: 6.25 mg Cephalexin (Keflex) 250 mg PO TID [facility] Stop: 01/21/20 15:01 Last Admin: 01/12/20 08:34 Dose: 250 mg Diltiazem HCl (Cardizem Cd) 120 mg PO DAILY [facility] Last Admin: 01/12/20 08:34 Dose: 120 mg Fluticasone Propionate (Flonase Nasal [place]) 0 gm NASAL DAILYPRN PRN PRN Reason: Allergies Hydrocortisone/Aloe (Hydrocortisone 1% Cream) 0 gm TOP BIDPRN PRN PRN Reason: IRRITATION AT DEFIB PAD SITES Cefazolin Sodium/Dextrose 2 gm (/ Device) 50 mls @ 100 mls/hr IVPB WILLCALL [facility] Ondansetron HCl (Zofran Odt) 4 mg PO Q6H PRN PRN Reason: Nausea/Vomiting Ondansetron HCl (Zofran) 4 mg IVP Q6H PRN PRN Reason: Nausea/Vomiting Sacubitril/Valsartan (Entresto 24 Mg-26 Mg Tablet) 1 tab PO BID [facility] Last Admin: 01/12/20 08:34 Dose: 1 tab Sodium Chloride (Flush - Normal Saline) 10 ml IVF Q12HR [facility] Last Admin: 01/12/20 08:34 Dose: 10 ml Sodium Chloride (Flush - Normal Saline) 10 ml IVF PRN PRN PRN Reason: Saline Flush Vital Signs & Weight: Vital Signs Temp Pulse Resp BP Pulse Ox 01/12/20 08:34 70 01/12/20 07:21 98.0 F 70 20 132/63 96 01/12/20 07:20 96 01/12/20 03:40 97.6 F 69 20 143/69 H 96 Weight 199 lb - Quality Measures Condition: Atrial Fibrillation/Flutter (hx or current) CV meds: Beta Geeta: Yes - Physical Exam General: alert & oriented x3 HEENT: mucus membranes moist Neck: supple neck Cardiac: irregularly regular, S1/S2 Lungs: decreased breath sounds Extremities: no edema - Labs Result Diagrams: 01/07/20 14:11 01/10/20 04:13 Troponin/CKMB Troponin I 0.019 ng/mL (< 0.028) 01/07/20 21:04 - Telemetry Supraventricular conduction: atrial fibrillation (A paced) - Assessment/Plan Assessment/Plan: 1. Symptomatic bradycardia with s/p PM placement on 01/09/2020 with revision on 01/11/2020 - PM site is IN PROCESS INSPECTOR with mild swelling and erythema, and no drainage. Tele monitor showed normal sensing 2. Persistent Afib with hx of DCCV in past - S/p DCCV with 3 shocks 01/10/2020 with no success; still in Afib with stable HR; on Amiodarone 200mg TID from ; on Coreg 6.25mg BID, diltiazem 120mg qd and Eliquis 5mg BID; 3. Chronic diastolic HF - stable 4. Sleep Apnea - on Cpap 5. Chronic Back pain 6. pacemaker lead malfunction with displacement. with reposition on 01/11/2020 MAR reviewed * From Cardiac standpoint, the pt is stable to d/c home. * The pt will call [employer] for [employer] device (the number is given to the pt) * The pt will f/u with ECG in the office with Dr Bautista' office in 10 days. * The pt will f/u with Dr Mai in 2wks for hospital follow up Pt. seen and eval. by me. I agree with the A/P by the SPRAY II PAINTER. Chest clear, RRR, no edema. Pacemaker A-lead in good position on the post procedure CXR yesterday after repositioning the lead. AP/VSChest clear. RRR, no edema. She is stable for d/c.
--- NOTE | 2020-01-12 16:07 | PDOC.EP ---
- Subjective Date: 01/12/20 Time: 08:00 Interval History: Anticipated DC today. Back in SR. feels well. - Review of Systems Constitutional: denies: chills, fever, malaise, sweats, weakness Respiratory: denies: cough, dry, hemoptysis, pleuritic pain, shortness of breath , SOB with excertion, sputum, wheezing Cardiology: denies: chest pain, heart racing, light headedness, palpitations, passing out Gastrointestinal: denies: abdominal pain, constipation, nausea, vomitting Musculoskeletal: denies: unstable gait, falls, leg pain - Objective Allergies/Adverse Reactions: Allergies Allergy/AdvReac Type Severity Reaction Status Date / Time latex Allergy Verified 12/27/19 17:00 Vital Signs & Weight: Vital Signs Temp Pulse Resp BP Pulse Ox 01/12/20 08:34 70 01/12/20 07:21 98.0 F 70 20 132/63 96 01/12/20 07:20 96 Weight 199 lb I/O: I/O 01/11/20 01/12/20 01/13/20 06:59 06:59 06:59 Intake Total 300 960 600 Output Total 450 700 Balance -150 260 600 - Quality Measures Condition: Atrial Fibrillation/Flutter (hx or current) CV meds: Eliquis: Yes - Physical Exam General: alert & oriented x3, appears well, no apparent distress, speech clear, affect appropriate HEENT: mucus membranes moist, normocephaly Neck: supple neck, midline trachea, no JVD/HJR, no masses, no bruit, no lymphadenopathy, no thromegaly Cardiology: regular rate and rhythm, no murmur, regular rate, regular rhythm, PMI nondisplaced Lungs: clear to auscultation, normal breath sounds, normal exam, no wheeze, rales, rhonchi, no wheezes, no rales, no rhonchi Neurology: cranial nerve 2-12 intact, grossly intact, motor function intact, sensory function intact, negative rhomberg, coordination normal, no lateralizing findings - Labs Result Diagrams: 01/07/20 14:11 01/10/20 04:13 - EKG Interpretation EKG Method: Telemetry EKG shows: Sinus rhythm - Assessment/Plan Assessment/Plan: sessment/Plan: 1. Persistent atrial fibrillation, refractory to amiodarone. 2. Tachy-paty syndrome. 3. Dual-chamber pacemaker placed on 01/10/2020. 4. Anticoagulation with Eliquis for CHADS-VASc score of 4 on the basis of female gender, advancing age, history of heart failure, and hypertension. 5. Hypertension. Sinus rhythm on tele. continue current medications. 4 week follow up arranged. Plan for outpatient ablation after recovery from PPM implant to prevent lead dislodgment.
--- NOTE | 2020-01-14 12:19 | EKG ---
Test Reason : Blood Pressure : / mmHG Vent. Rate : 036 BPM Atrial Rate : 036 BPM P-R Int : 156 ms QRS Dur : 100 ms QT Int : 596 ms P-R-T Axes : 046 -23 147 degrees QTc Int : 460 ms Marked sinus bradycardia Abnormal ECG Confirmed by LIBORIO RUBIO ([id number]), medical editor ALEISHA PHILLIP ([id number]) on 01/14/2020 12:19:03 PM Referred By: Confirmed By:LIBORIO RUBIO
--- NOTE | 2020-01-15 14:03 | DIS ---
DATE OF ADMISSION: 01/07/2020 DATE OF DISCHARGE: 01/12/2020 ADMITTING ATTENDING: Julio Reeves MD DISCHARGING ATTENDING: Marlon Aparicio MD RESIDENT: Sujatha Sharif MD CONSULTS: 1. Cardiology, Dr. Bautista. 2. Electrophysiology, Dr. Jasmine. PROCEDURES: Dual-chamber pacemaker placed on 01/10/2020. PRIMARY DIAGNOSIS: Symptomatic bradycardia. SECONDARY DIAGNOSES: 1. Heart failure with reduced ejection fraction. 2. History of atrial fibrillation. DISCHARGE MEDICATIONS: 1. Pepcid. 2. Flonase. 3. Lasix. 4. Entresto. 5. Eliquis. 6. Coreg, dose increased to 6.25 mg b.i.d. 7. Keflex 250 mg t.i.d. for 9 days. 8. Diltiazem 120 mg p.o. daily. DISCONTINUED MEDICATIONS: Amiodarone. HISTORY OF PRESENT ILLNESS/HOSPITAL COURSE: Ms. Leal is a 69-year-old female with history of heart failure and atrial fibrillation, status post cardioversion, who presented with worsening dizziness and weakness. She was diagnosed with heart failure in July of 2019 and has been managing it medically since then. On initial presentation, her EKG showed sinus bradycardia with rate of 36 beats per minute. Cardiology was consulted and recommended pacemaker placement. She has been taking Eliquis prior to admission. Eliquis was held for 48 hours prior to procedure. Dr. Bautista put a dual-chamber pacemaker in and consulted Dr. Jasmine for refractory atrial fibrillation, status post pacemaker placement. During her hospitalization, amiodarone was increased from 200 mg b.i.d. to 300 mg b.i.d. before it was discontinued and Cardizem was started. DISPOSITION: Stable. DISCHARGE INSTRUCTIONS: 1. Location: Home. 2. Diet: Heart healthy. 3. Activity: Ad gaa. 4. Followup: Follow up with Dr. Bautista within 10 days, Dr. Jasmine within 3 to 4 weeks, and primary care provider after discharge. Job ID: [id number]
== END 2020-01-12 13:31 | disposition home or self-care (01) | DRG 243 ==
LOC: ERS 13:52 → 2NO 17:00
PROVIDERS: ADMIT Family Medicine; ATTEND Family Medicine
PROC: 0JH606Z Insertion of Pacemaker, Dual Chamber into Chest Subcutaneous Tissue and Fascia, Open Approach (ICD-10-PCS; 2020-01-09)
PROC: 02H63JZ Insertion of Pacemaker Lead into Right Atrium, Percutaneous Approach (ICD-10-PCS; 2020-01-09)
PROC: 02HK3JZ Insertion of Pacemaker Lead into Right Ventricle, Percutaneous Approach (ICD-10-PCS; 2020-01-09)
PROC: B2111ZZ Fluoroscopy of Multiple Coronary Arteries using Low Osmolar Contrast (ICD-10-PCS; 2020-01-09)
PROC: 4A023FZ Measurement of Cardiac Rhythm, Percutaneous Approach (ICD-10-PCS; principal; 2020-01-11)
PROC: 4A0234Z Measurement of Cardiac Electrical Activity, Percutaneous Approach (ICD-10-PCS; 2020-01-11)
PROC: 4A023N7 Measurement of Cardiac Sampling and Pressure, Left Heart, Percutaneous Approach (ICD-10-PCS; 2020-01-11)
DX: I49.5 Sick sinus syndrome (principal); I50.42 Chronic combined systolic (congestive) and diastolic (congestive) heart failure; I48.0 Paroxysmal atrial fibrillation; G89.29 Other chronic pain; I11.0 Hypertensive heart disease with heart failure; I42.8 Other cardiomyopathies; G47.33 Obstructive sleep apnea (adult) (pediatric); Z79.01 Long term (current) use of anticoagulants; Z90.49 Acquired absence of other specified parts of digestive tract; Z91.040 Latex allergy status
CPT/HCPCS: 33208; 33215; 36415; 71045; 71046; 80048; 80053; 82550; 83690; 84484; 85025; 90471; 90670; 92960; 93005; 93010; 93306; 99152; 99153; C1785; C1898; G0009; J0690; J1250; J1580; J2250; J2704

== ENCOUNTER 2020-03-28 08:26 | Outpatient (CLI) | payer MEDICARE, OTHER ==
[2020-03-28 16:07] LABS: Hemoglobin 13.8 g/dL (12.0-16.0); Mean Corpuscular HGB CONC 34.3 g/dL (32.0-36.0); Mean Corpuscular Hemoglobin 32.5 pg (27.0-31.0); Mean Corpuscular Volume 94.8 fL (78.0-98.0); Mean Platelet Volume 8.3 fL (7.4-10.4); Platelet Count 292 thou/uL (130-400); Red Blood Cell (RBC) Count 4.25 mill/uL (4.20-5.40); White Blood Cell (WBC) Count 9.4 thou/uL (4.8-10.8)
[2020-03-28 16:25] LABS: INR-International Normal Ratio 1.2; Prothrombin Time 14.9 sec (12.0-14.7)
[2020-03-28 16:26] LABS: PTT 39.2 sec (22.9-36.1)
[2020-03-28 17:02] LABS: Anion Gap 16 mmol/L (10-20); BUN (Urea Nitrogen) 19 mg/dL (9.8-20.1); Calc. Creatinine Clearance 0 mL/min (70-130); Calcium 9.6 mg/dL (7.8-10.44); Carbon Dioxide 22 mmol/L (23-31); Chloride 104 mmol/L (98-107); Estimated GFR-MDRD 49; Glucose 141 mg/dL (80-115); Potassium 3.8 mmol/L (3.5-5.1); Sodium 138 mmol/L (136-145)
[2020-03-29 12:32] LABS: SARS-CoV-2 MS2 Positive; SARS-CoV-2 N Gene Negative; SARS-CoV-2 S Gene Negative; SARS-CoV-2 by NAA Not Detected (NotDetected); SARS-CoV-2 orf1ab Negative
== END 2020-03-28 08:27 | disposition home or self-care (01) ==
LOC: LABBT 08:26
PROVIDERS: ATTEND Specialist
DX: Z01.812 Encounter for preprocedural laboratory examination (principal); Z20.828 Contact with and (suspected) exposure to other viral communicable diseases; I48.91 Unspecified atrial fibrillation
CPT/HCPCS: 80048; 85027; 85610; 85730; U0003; 87635

== ENCOUNTER 2020-04-23 07:22 | Outpatient (CLI) | payer MEDICARE, BC, OTHER ==
[2020-04-23 14:09] LABS: Hemoglobin 14.2 g/dL (12.0-16.0); Mean Corpuscular HGB CONC 34.7 g/dL (32.0-36.0); Mean Corpuscular Hemoglobin 33.3 pg (27.0-31.0); Mean Platelet Volume 7.8 fL (7.4-10.4); Platelet Count 304 thou/uL (130-400); RBC Distribution Width 12.2 % (11.5-14.5); Red Blood Cell (RBC) Count 4.28 mill/uL (4.20-5.40); White Blood Cell (WBC) Count 14.3 thou/uL (4.8-10.8)
[2020-04-23 14:22] LABS: INR-International Normal Ratio 1.1
[2020-04-23 14:23] LABS: PTT 37.7 sec (22.9-36.1)
[2020-04-23 15:00] LABS: Anion Gap 18 mmol/L (10-20); BUN (Urea Nitrogen) 16 mg/dL (9.8-20.1); Calc. Creatinine Clearance 0 mL/min (70-130); Calcium 9.8 mg/dL (7.8-10.44); Carbon Dioxide 19 mmol/L (23-31); Chloride 106 mmol/L (98-107); Estimated GFR-MDRD 60; Glucose 91 mg/dL (80-115); Potassium 4.5 mmol/L (3.5-5.1); Sodium 138 mmol/L (136-145)
[2020-04-24 11:54] LABS: SARS-CoV-2 MS2 Positive; SARS-CoV-2 N Gene Negative; SARS-CoV-2 S Gene Negative; SARS-CoV-2 by NAA Not Detected (NotDetected); SARS-CoV-2 orf1ab Negative
== END 2020-04-23 07:23 | disposition home or self-care (01) ==
LOC: LABBT 07:22
PROVIDERS: ATTEND Specialist
DX: Z01.812 Encounter for preprocedural laboratory examination (principal); I48.91 Unspecified atrial fibrillation; Z20.828 Contact with and (suspected) exposure to other viral communicable diseases
CPT/HCPCS: 80048; 85027; 85610; 85730; U0003; 87635

== ENCOUNTER 2020-04-26 06:01 | Observation (INO) | payer MEDICARE ==
[2020-04-23 14:35] VITALS: BMI 32.9
[2020-04-26] MEDS ORDERED: Lidocaine 1% (PF) 30 ML VIAL ONE (06:35)
[2020-04-26] MEDS ORDERED: Heparin 10,000 UNITS/ 10 ML VIAL ONE ×2 (06:35→09:00)
[2020-04-26] MEDS ORDERED: Fentanyl 100 MCG/2 ML VIAL ONE (06:51)
[2020-04-26] MEDS ORDERED: SUGAMMADEX SODIUM 200 MG/2 ML VIAL ONE (06:51)
[2020-04-26] MEDS ORDERED: Midazolam HCl 2 mg/2 ml Vial IVP SCH (07:45)
[2020-04-26] MEDS ORDERED: Midazolam HCl 2 mg/2 ml Vial ONE (08:17)
[2020-04-26] MEDS ORDERED: Isoproterenol 0.2 MG/1 ML AMP ONE (09:00)
[2020-04-26] MEDS ORDERED: Protamine Sulfate 50 MG/5 ML VIAL ONE (10:17)
[2020-04-26] MEDS ORDERED: PROPOFOL 200 MG/20 ML VIAL ONE (10:24)
[2020-04-26] MEDS ORDERED: Lidocaine 1% PF 5 ML VIAL ONE (10:24)
[2020-04-26] MEDS ORDERED: Rocuronium Bromide 10 MG/ML (10ML VIAL) ONE (10:24)
[2020-04-26] MEDS ORDERED: Fluticasone Propionate Nasal Spray 16 gm Bottle NASAL PRN (11:54)
[2020-04-26] MEDS: Sucralfate 1 GM TAB PO SCH ×3 (14:53→19:59)
[2020-04-26] MEDS: Carvedilol 6.25 MG TAB PO SCH (17:37)
[2020-04-26] MEDS: Apixaban 5 MG TAB PO SCH (19:59)
[2020-04-26] MEDS: Acetaminophen 325 MG TAB PO PRN (19:59)
[2020-04-27] MEDS: Acetaminophen 325 MG TAB PO PRN (04:15)
--- NOTE | 2020-04-27 05:53 | PDOC.FM ---
- Subjective Subjective: H&P was dictated yesterday, but has not showed in chart yet. Ms. Leal did not sleep well last night but otherwise had no complaints. Denies CP, SOB, difficulty breathing, palpitations. Good PO intake. No events on telemetry overnight. - Objective Vital Signs & Weight: Vital Signs (12 hours) Temp Pulse Resp BP Pulse Ox 04/27/20 04:23 97.7 F 67 18 139/67 96 04/26/20 23:58 98.0 F 72 20 137/63 95 04/26/20 19:10 97.9 F 73 18 136/59 L 95 Weight Weight 92.533 kg I&O: 04/25/20 04/26/20 04/27/20 06:59 06:59 06:59 Intake Total 2670 Output Total 0 Balance 2670 Phys Exam - Physical Examination Constitutional: NAD bandage in place Respiratory: no wheezing, clear to auscultation bilateral Cardiovascular: RRR, no significant murmur Gastrointestinal: soft, non-tender Neurological: non-focal Psychiatric: normal affect Skin: no rash Dx/Plan - Plan Plan: 69 yo F with PMH afib s/p ablation yesterday was admitted post procedure for observation overnight. - No changes on telemetry, patient recovering well - home medications were continued - Op note resulted with recommended EP follow up in 6 weeks - Will touch base with EP to ensure they had no other recommendations or concerns considering overnight stay. Otherwise plan for discharge today. Addendum - Attending - Attending Attestation Date/Time: 04/27/20 8308 I personally evaluated the patient and discussed the management with Dr. Lopez. I agree with the History, Examination, Assessment and Plan documented above with any addition or exceptions noted below. The patient was sitting up in a bedside chair this morning. She is s/p ablation and overall has done well. will d/c home to f/u with EP as an outpt.
[2020-04-27 07:31] VITALS: BP 130/55; TEMP 98.3
--- NOTE | 2020-04-27 07:48 | OP ---
DATE OF PROCEDURE: 04/26/2020 PROCEDURE PERFORMED: Radiofrequency ablation for atrial fibrillation. PREOPERATIVE DIAGNOSIS: Atrial fibrillation. PROCEDURE IN DETAIL: The patient came to the EP lab in a postabsorptive state. Informed consent was obtained. A time-out was called. The patient was sedated by member of the Anesthesia staff using general anesthesia. Once the patient was adequately sedated, the right and left femoral regions and the right internal jugular region were prepped and draped in usual sterile fashion. The patient's pacemaker was programed to VVI 40. Access was obtained x2 in the right femoral vein using ultrasound-guided access. Access was obtained x1 in the left femoral vein using ultrasound-guided access and access was obtained x1 in the right internal jugular vein using ultrasound-guided access. 7-Paraguayan sheath was placed in the right internal jugular vein and a 20 pole Duodeca catheter was advanced from the distal 10 poles into the coronary sinus for left atrial pacing and recording. Two 8-[place] sheaths were placed into the right femoral vein for exchange for long sheaths for transseptal access. Through the left femoral vein, a 10-[place] sheath was advanced and through that intracardiac echo was placed and advanced into the right atrium for procedural monitoring and guidance. Intravenous heparin was given as a bolus and transseptal puncture was performed x2 under intracardiac ultrasound guidance. A 10 pole 20 mm Carto Lasso catheter was advanced in the left atrium and a left atrial geometry was made using the Carto electroanatomical mapping system. An ablation catheter, which was an STSF F type, Thermocool catheter was placed into the left atrium. Pacing in the left atrium was performed as was pacing in the left ventricle. Radiofrequency ablation was delivered around the pulmonary veins and into the posterior wall of left atrium with a target output of approximately 40 to 44 barreto while monitoring esophageal temperatures and signals in the vein. Pulmonary vein isolation and a posterior wall ablation were performed as well as some ablation on the roof and septum. A total of 37 minutes and 29 seconds of radiofrequency ablation were delivered. After this, elective cardioversion was performed and the patient maintained normal sinus rhythm. Isoproterenol bolus was given and no extrapulmonary vein triggers were identified. Catheters were therefore removed and hemostasis obtained in the femoral region by placement of Vascade sheath in the internal jugular region by manual compression. The patient tolerated the procedure well and was awoken from anesthetic without any difficulty. COMPLICATIONS: None acute. ESTIMATED BLOOD LOSS: Less than 20 mL. CONCLUSION: Successful radiofrequency ablation for atrial fibrillation. RECOMMENDATIONS: The patient will be at bed rest. She will follow up with electrophysiology in approximately 6 to 8 weeks. Job ID: [id number]
[2020-04-27] MEDS: Apixaban 5 MG TAB PO SCH (08:10)
[2020-04-27] MEDS: Carvedilol 6.25 MG TAB PO SCH (08:11)
[2020-04-27] MEDS: Sucralfate 1 GM TAB PO SCH (08:12)
[2020-04-27] MEDS ORDERED: Furosemide 20 MG TAB PO SCH (09:00)
[2020-04-27] MEDS ORDERED: FLU VACC QS2020-21(65YR UP)/PF 240 MCG/0.7 ML SYRINGE IM ONE (09:00)
--- NOTE | 2020-04-28 08:53 | EKG ---
Test Reason : PREOP Blood Pressure : / mmHG Vent. Rate : 073 BPM Atrial Rate : 104 BPM P-R Int : 000 ms QRS Dur : 102 ms QT Int : 414 ms P-R-T Axes : 000 -28 212 degrees QTc Int : 456 ms Demand pacemaker; interpretation is based on intrinsic rhythm Atrial fibrillation with premature ventricular or aberrantly conducted complexes Abnormal ECG Confirmed by DR. Patrica CHEEK ([id number]) on 04/28/2020 8:52:50 AM Referred By: AIMEE Confirmed By:DR. Patrica CHEEK
--- NOTE | 2020-04-29 15:13 | CON ---
DATE OF CONSULTATION: 04/26/2020 CHIEF COMPLAINT: Observation status post cardiac ablation. HISTORY OF PRESENT ILLNESS: The patient is a 69-year-old female with a past medical history significant for AFib and heart failure with reduced ejection fraction, who received a cardiac ablation on April [address] Em Manuel. The patient tolerated the procedure well and the Family Medicine Residency was subsequently consulted to care for the patient overnight. Per the check out given to the multicultural internship resident, the patient should be monitored for 24 hours on telemetry and discharged with the medication regimen set forth by the specialist prior to the procedure. At the time of evaluation, the patient had no complaints other than mild soreness at her right anterior neck. Her was present in the room and assisted with much of the HPI and ROS REVIEW OF SYSTEMS: The patient endorses mild soreness as per above; however, the patient denies recent fevers, chills, headache, visual disturbances, nausea, vomiting, severe cough, chest pain, shortness of breath, abdominal pain or lower extremity edema. PHYSICAL EXAMINATION: VITAL SIGNS: The patient's vital signs were reviewed. The patient was found to have a temperature of 97.5 degrees Fahrenheit, pulse was 71, blood pressure was 139/65, respirations were 20 breaths per minute, and oxygen saturation was 97% on room air. HEENT: Normocephalic and atraumatic. Eyes demonstrated PERRLA with extraocular muscles grossly intact. Hearing grossly intact. Moist mucous membranes noted with no oropharyngeal erythema or exudates. Bandage was in place over the patient's right anterior neck with mild tenderness to palpation. No lymphadenopathy was noted. No tracheal deviation was noted. CARDIAC: Regular rate and rhythm without murmurs, clicks, gallops or rubs. Per review of the telemetry strip, there was no evidence of ongoing AFib or any ST-segment changes. RESPIRATORY: Clear lungs to auscultation bilaterally without wheezes, rales or rhonchi. GI: Protuberant abdomen with normoactive bowel sounds. No tenderness to palpation. No guarding or rigidity. : The patient's venous insertion sites were inspected in the inguinal region. There was no evidence of hematoma or ongoing drainage, and no tenderness to palpation. EXTREMITIES: The patient demonstrated +2 pulses at the radial, dorsalis pedis, and posterior tibial arteries bilaterally. The patient was able to move all extremities equally and appropriately with no obvious deficits. NEUROLOGIC: The patient was alert and oriented x3 and was cooperative with the exam. ASSESSMENT: Heart failure with reduced ejection fraction, likely secondary to chronic atrial fibrillation, status post cardiac ablation. PLAN: We will continue coagulation with apixaban 5 mg p.o. b.i.d. as well as specialist recommended medication regimen of carvedilol, diltiazem, and furosemide and Entresto. The patient appears well at this time with no significant complaints. We will start heart healthy diet with low sodium and we will treat pain with p.r.n. Tylenol. We will consider increasing regimen to Tylenol 3 or tramadol if the patient's pain becomes intolerable; however, the patient denies any pain at this time and states that she feels well. The patient appears stable at this time and is admitted to the telemetry floor for observation status post cardiac ablation. We will plan to observe the patient for 24 hours and discharge with aforementioned medication regimen per specialist instructions. Job ID: [id number] [facility]ENTERFelipe
== END 2020-04-27 12:36 | disposition home or self-care (01) ==
LOC: CCL 06:01 → 2SW 13:24
PROVIDERS: ADMIT Specialist; ATTEND Specialist
PROC: 02583ZZ Destruction of Conduction Mechanism, Percutaneous Approach (ICD-10-PCS; principal; 2020-04-26)
DX: I48.19 Other persistent atrial fibrillation (principal); I42.8 Other cardiomyopathies; I49.5 Sick sinus syndrome; I11.0 Hypertensive heart disease with heart failure; G47.33 Obstructive sleep apnea (adult) (pediatric); I50.22 Chronic systolic (congestive) heart failure; Z79.01 Long term (current) use of anticoagulants; Z79.899 Other long term (current) drug therapy; Z91.040 Latex allergy status; Z95.0 Presence of cardiac pacemaker
CPT/HCPCS: 76942; 85347 ×2; 90662; 92960; 93005; 93613; 93623; 93655; 93656; 93662; C1732; C1759; C1884; G0008; 90471; 93010; G0378; J1644; J2001; J2250; J2704; J2720; J3010

== ENCOUNTER 2022-08-25 10:03 | Outpatient (CLI) | payer OTHER ==
[2022-08-25] MEDS ORDERED: Iopamidol 370 76% 100 ML VIAL ONE (12:13)
== END 2022-08-25 10:04 | disposition home or self-care (01) ==
LOC: NM 10:03
PROVIDERS: ATTEND Nurse Practitioner Acute Care
DX: C50.412 Malignant neoplasm of upper-outer quadrant of left female breast (principal); R59.0 Localized enlarged lymph nodes; R91.8 Other nonspecific abnormal finding of lung field; K76.0 Fatty (change of) liver, not elsewhere classified
CPT/HCPCS: 71260; 74177; 78306; A9503; Q9967

== ENCOUNTER 2022-10-26 13:04 | Outpatient (CLI) | payer OTHER ==
[2022-10-26 15:34] LABS: #Basophils 0.1 10x3/uL (0.0-0.2); #Eosinphils 0.3 10x3/uL (0.0-0.5); #Monocytes 0.7 10x3/uL (0.0-1.1); #Neutrophils 9.1 10x3/uL (1.5-8.4); %Basophils 0.8 % (0.0-2.0); %Lymphocytes 21.6 % (18.0-47.0); %Monocytes 5.5 % (0.0-10.0); %Neutrophils 68.7 % (40.0-75.0); Hemoglobin 13.1 g/dL (12.0-15.5); Mean Corpuscular Hemoglobin 30.8 pg (27.0-33.0); Mean Corpuscular Volume 90.4 fl (81.6-98.3); Mean Platelet Volume 9.7 fl (7.4-10.4); Platelet Count 330 10x3/uL (150-450); RBC Distribution Width 13.3 % (11.5-14.5); Red Blood Cell (RBC) Count 4.26 10x6/uL (3.90-5.03); White Blood Cell (WBC) Count 13.3 10x3/uL (3.5-10.5)
[2022-10-26 15:56] LABS: Anion Gap 20 mmol/L (10-20); BUN (Urea Nitrogen) 16 mg/dL (9.8-20.1); Calc. Creatinine Clearance 0 mL/min (70-130); Calcium 9.1 mg/dL (7.8-10.44); Carbon Dioxide 18 mmol/L (23-31); Chloride 107 mmol/L (98-107); Estimated GFR 88; Glucose 81 mg/dL (83-110); Potassium 4.5 mmol/L (3.5-5.1); Sodium 140 mmol/L (136-145)
== END 2022-10-26 13:05 | disposition home or self-care (01) ==
LOC: LABBT 13:04
PROVIDERS: ATTEND Specialist
DX: Z01.818 Encounter for other preprocedural examination (principal); C50.919 Malignant neoplasm of unspecified site of unspecified female breast
CPT/HCPCS: 71046; 80048; 85025

== ENCOUNTER 2022-10-29 07:45 | Day surgery (SDC) | payer OTHER ==
[2022-10-27 13:06] VITALS: BMI 34.4
[2022-10-29] MEDS ORDERED: Acetaminophen 500 MG TAB ONE (09:33)
[2022-10-29] MEDS ORDERED: Ketorolac Tromethamine 30 MG/ML VIAL ONE (09:33)
[2022-10-29] MEDS ORDERED: Isosulfan Blue 50 MG/5 ML VIAL ONE (11:19)
[2022-10-29] MEDS ORDERED: Bupivacaine/Epinephrine 0.25% 30 ML VIAL ONE (11:19)
[2022-10-29] MEDS ORDERED: fentaNYL 50 mcg/mL 1 mL Vial ONE ×2 (11:25→13:40)
[2022-10-29] MEDS ORDERED: Sodium Chloride 0.9% 100 ML ONE (11:46)
[2022-10-29] MEDS ORDERED: CEFAZOLIN 2 GM VIAL ONE (11:46)
[2022-10-29] MEDS ORDERED: PROPOFOL 200 MG/20 ML VIAL ONE (11:48)
[2022-10-29] MEDS ORDERED: Lidocaine 1% PF 5 ML VIAL ONE (11:48)
[2022-10-29] MEDS ORDERED: Ondansetron PF 4 MG/2 ML Vial ONE (11:48)
[2022-10-29] MEDS ORDERED: Lidocaine 2% PF 5 ML VIAL ONE (12:09)
[2022-10-29] MEDS ORDERED: HYDROcodone/Acetaminophen 5/325 mg Tablet ONE (15:19)
== END 2022-10-29 16:44 | disposition home or self-care (01) ==
LOC: SDC 07:45
PROVIDERS: ATTEND Specialist
PROC: 0HBU0ZZ Excision of Left Breast, Open Approach (ICD-10-PCS; principal; 2022-10-29)
PROC: 07B60ZX Excision of Left Axillary Lymphatic, Open Approach, Diagnostic (ICD-10-PCS; 2022-10-29)
DX: C50.412 Malignant neoplasm of upper-outer quadrant of left female breast (principal); C77.3 Secondary and unspecified malignant neoplasm of axilla and upper limb lymph nodes; I48.19 Other persistent atrial fibrillation; I50.9 Heart failure, unspecified; G47.30 Sleep apnea, unspecified; K21.9 Gastro-esophageal reflux disease without esophagitis; Z17.0 Estrogen receptor positive status [ER+]; Z79.01 Long term (current) use of anticoagulants; Z79.899 Other long term (current) drug therapy; Z91.040 Latex allergy status; Z95.0 Presence of cardiac pacemaker
CPT/HCPCS: 19301; 38525; 38900; 76098; 78195; A9541; C1713; J3010; Q9968; 88305; 88307; 88341; 88342; J1885; J2001; J2405; J2704; J3490

== ENCOUNTER 2022-11-12 06:43 | Day surgery (SDC) | payer OTHER ==
[2022-11-11 10:13] VITALS: BMI 33.9
[2022-11-12] MEDS ORDERED: Ketorolac Tromethamine 30 MG/ML VIAL ONE (07:35)
[2022-11-12] MEDS ORDERED: Acetaminophen 500 MG TAB ONE (07:35)
[2022-11-12] MEDS ORDERED: Bupivacaine/Epinephrine 0.25% 30 ML VIAL ONE (08:53)
[2022-11-12] MEDS ORDERED: Midazolam HCl 2 mg/2 ml Vial ONE (08:57)
[2022-11-12] MEDS ORDERED: CEFAZOLIN 2 GM VIAL ONE (09:01)
[2022-11-12] MEDS ORDERED: Sodium Chloride 0.9% 100 ML ONE (09:01)
[2022-11-12] MEDS ORDERED: fentaNYL PF 100 MCG/2 ML SYRINGE ONE (09:03)
[2022-11-12] MEDS ORDERED: Ondansetron PF 4 MG/2 ML Vial ONE (09:17)
[2022-11-12] MEDS ORDERED: PHENYLEPHRINE-NS 100 MCG/ML 10 ML SYRINGE ONE (09:17)
[2022-11-12] MEDS ORDERED: PROPOFOL 200 MG/20 ML VIAL ONE (09:17)
[2022-11-12] MEDS ORDERED: Lidocaine 1% PF 5 ML VIAL ONE (09:17)
[2022-11-12] MEDS ORDERED: Dexamethasone 20 MG/5 ML VIAL ONE (09:17)
== END 2022-11-12 11:40 | disposition home or self-care (01) ==
LOC: SDC 06:43
PROVIDERS: ATTEND Specialist
PROC: 0HBU0ZZ Excision of Left Breast, Open Approach (ICD-10-PCS; principal; 2022-11-12)
DX: C50.912 Malignant neoplasm of unspecified site of left female breast (principal); I48.19 Other persistent atrial fibrillation; I50.9 Heart failure, unspecified; K21.9 Gastro-esophageal reflux disease without esophagitis; Z17.0 Estrogen receptor positive status [ER+]; Z79.01 Long term (current) use of anticoagulants; Z79.899 Other long term (current) drug therapy; Z91.040 Latex allergy status; Z95.0 Presence of cardiac pacemaker
CPT/HCPCS: 19301; C1713; C1889; 88307; 88342; J1100; J1885; J2250; J2405; J2704; J3490

== ENCOUNTER 2023-03-18 13:35 | Outpatient (CLI) | payer OTHER | END 2023-03-18 13:36 | disposition home or self-care (01) | LOC: ULT 13:35 | PROVIDERS: ATTEND Internal Medicine | DX: Z51.11 Encounter for antineoplastic chemotherapy (principal); C50.412 Malignant neoplasm of upper-outer quadrant of left female breast; Z79.899 Other long term (current) drug therapy | CPT/HCPCS: 93306 ==

== ENCOUNTER 2023-09-01 13:31 | Outpatient (CLI) | payer OTHER | END 2023-09-01 13:32 | disposition home or self-care (01) | LOC: BICMAMMO 13:31 | PROVIDERS: ATTEND Internal Medicine | DX: Z13.820 Encounter for screening for osteoporosis (principal); C50.412 Malignant neoplasm of upper-outer quadrant of left female breast; M85.851 Other specified disorders of bone density and structure, right thigh; M85.852 Other specified disorders of bone density and structure, left thigh | CPT/HCPCS: 77080 ==